=== PATIENT | female | born 1960 | race African-American/Black ===

== ENCOUNTER 2017-01-02 10:19 | Emergency (ER) | payer MEDICAID ==
--- NOTE | 2017-01-02 10:36 | ER Document Report ---
ED Medical Screen (RME) - General Chief Complaint: Cough Stated Complaint: COUGH Mode of Arrival: Ambulatory Information source: Patient Notes: 56 y/o F presents to ED c/o productive cough over the last 3 days. Reports hx of COPD and lung CA in remission. Denies fever or chest pain. I have greeted and performed a rapid initial assessment of this patient. A comprehensive ED assessment and evaluation of the patient, analysis of test results and completion of the medical decision making process will be conducted by additional ED providers. TRAVEL OUTSIDE OF THE [place] IN LAST 30 DAYS: No - Related Data Allergies/Adverse Reactions: honey [Honey] Allergy (Intermediate, Verified 01/02/17 10:33) Hives, tongue swelling Honey Bee Venom Protein [From Honey Bee Treatment] Allergy (Intermediate, Verified 01/02/17 10:33) Hives, tongue swelling Penicillins Allergy (Intermediate, Verified 01/02/17 10:33) hives, tongue swelling chocolate Allergy (Intermediate, Uncoded 01/02/17 10:33) Hives, tongue swelling POWDER GLOVES Allergy (Intermediate, Uncoded 01/02/17 10:33) RASH tomatoes Allergy (Intermediate, Uncoded 01/02/17 10:33) Hives, tongue swelling Past Medical History - Past Medical History Cardiac Medical History: Reports: Hx Hypertension Denies: Hx Coronary Artery Disease, Hx Heart Attack Pulmonary Medical History: Reports: Hx Asthma, Hx Bronchitis Denies: Hx COPD, Hx Pneumonia Neurological Medical History: Denies: Hx Cerebrovascular Accident, Hx Seizures Malignancy Medical History: Reports: Hx Lung Cancer Musculoskeltal Medical History: Denies Hx Arthritis Skin Medical History: Reports Hx Cellulitis, Reports Hx MRSA Traumatic Medical History: Reports: Hx Fractures Infectious Medical History: Reports: Hx MRSA Past Surgical History: Reports: Hx Hysterectomy - Immunizations Immunizations up to date: Yes Hx Diphtheria, Pertussis, Tetanus Vaccination: Yes Physical Exam - Vital signs Vitals: Temp Pulse Resp BP Pulse Ox 98.0 F 73 20 134/77 H 97 01/02/17 10:29 01/02/17 10:29 01/02/17 10:29 01/02/17 10:29 01/02/17 10:29 - General General appearance: Appears well, Alert In distress: None - Respiratory Respiratory status: No respiratory distress Breath sounds: Normal, Productive cough Course - Vital Signs Vital signs: Temp Pulse Resp BP Pulse Ox 98.0 F 73 20 134/77 H 97 01/02/17 10:29 01/02/17 10:29 01/02/17 10:29 01/02/17 10:29 01/02/17 10:29
[2017-01-02] MEDS ORDERED: IPRATROPIUM/ALBUTEROL 0.5-2.5 MG/3 ML AMPUL NEB ONE (11:52)
[2017-01-02] MEDS ORDERED: PREDNISONE 20 MG TABLET PO ONE (11:52)
[2017-01-02] MEDS ORDERED: AZITHROMYCIN 250 MG TABLET PO ONE (11:54)
--- NOTE | 2017-01-02 11:55 | ER Document Report ---
ED Respiratory Problem - General Chief Complaint: Cough Stated Complaint: COUGH Mode of Arrival: Ambulatory Information source: Patient Notes: Patient reports three-day history productive cough. Patient denies any fever. Patient does report increased sputum. Patient does have a history of COPD as well as lung cancer. Patient states she has been in remission from her lung cancer for the past 3 months. TRAVEL OUTSIDE OF THE [place] IN LAST 30 DAYS: No - HPI Patient complains to provider of: COPD, Cough. No: Chest pain, Short of breath Onset: Other - 3 days Pain Level: 0 Context: Hx COPD, Smoker Cough: Productive Sputum amount: Moderate Associated symptoms: Cough, Toothache. denies: Bloody cough, Chest pain/ discomfort, Congestion, Fever Similar symptoms previously: Yes Recently seen / treated by doctor: No - Related Data Allergies/Adverse Reactions: honey [Honey] Allergy (Intermediate, Verified 01/02/17 10:33) Hives, tongue swelling Honey Bee Venom Protein [From Honey Bee Treatment] Allergy (Intermediate, Verified 01/02/17 10:33) Hives, tongue swelling Penicillins Allergy (Intermediate, Verified 01/02/17 10:33) hives, tongue swelling chocolate Allergy (Intermediate, Uncoded 01/02/17 10:33) Hives, tongue swelling POWDER GLOVES Allergy (Intermediate, Uncoded 01/02/17 10:33) RASH tomatoes Allergy (Intermediate, Uncoded 01/02/17 10:33) Hives, tongue swelling Past Medical History - General Information source: Patient - Social History Smoking Status: Current Every Day Smoker Chew tobacco use (# tins/day): No Frequency of alcohol use: None Drug Abuse: None Occupation: none Family History: Reviewed & Not Pertinent Patient has suicidal ideation: No Patient has homicidal ideation: No - Past Medical History Cardiac Medical History: Reports: Hx Hypertension Denies: Hx Coronary Artery Disease, Hx Heart Attack Pulmonary Medical History: Reports: Hx Asthma, Hx Bronchitis, Hx COPD Denies: Hx Pneumonia Neurological Medical History: Denies: Hx Cerebrovascular Accident, Hx Seizures Renal/ Medical History: Denies: Hx Peritoneal Dialysis Malignancy Medical History: Reports: Hx Lung Cancer Musculoskeltal Medical History: Denies Hx Arthritis Skin Medical History: Reports Hx Cellulitis, Reports Hx MRSA Traumatic Medical History: Reports: Hx Fractures Infectious Medical History: Reports: Hx MRSA Past Surgical History: Reports: Hx Hysterectomy - Immunizations Immunizations up to date: Yes Hx Diphtheria, Pertussis, Tetanus Vaccination: Yes Review of Systems - Review of Systems Constitutional: No symptoms reported. denies: Fever EENT: No symptoms reported Cardiovascular: No symptoms reported. denies: Chest pain, Dizziness, Lightheaded Respiratory: Cough, Wheezing. denies: Hemoptysis, Short of breath Gastrointestinal: No symptoms reported. denies: Nausea, Vomiting Genitourinary: No symptoms reported Female Genitourinary: No symptoms reported Musculoskeletal: No symptoms reported. denies: Back pain Skin: No symptoms reported Hematologic/Lymphatic: No symptoms reported Neurological/Psychological: No symptoms reported Physical Exam - Vital signs Vitals: Temp Pulse Resp BP Pulse Ox 98.0 F 73 20 134/77 H 97 01/02/17 10:29 01/02/17 10:29 01/02/17 10:29 01/02/17 10:29 01/02/17 10:29 - General General appearance: Appears well, Alert In distress: None - HEENT Head: Normocephalic Eyes: Normal Conjunctiva: Normal Nasal: Normal Mouth/Lips: Normal Mucous membranes: Normal Pharynx: Normal. No: Erythema, Exudate, Peritonsillar abscess, Tonsillar hypertrophy Neck: Normal, Supple. No: Lymphadenopathy - Respiratory Respiratory status: No respiratory distress Chest status: Nontender Breath sounds: Nonproductive cough, Wheezing Chest palpation: Normal - Cardiovascular Rhythm: Regular Heart sounds: S1 appreciated, S2 appreciated Murmur: No - Back Back: Normal, Nontender. No: CVA tenderness - Extremities General upper extremity: Normal inspection, Normal strength General lower extremity: Normal inspection, Normal strength - Neurological Neuro grossly intact: Yes Cognition: Normal [place] Coma Scale Eye Opening: Spontaneous [place] Coma Scale Verbal: Oriented [place] Coma Scale Motor: Obeys Commands [place] Coma Scale Total: 15 - Psychological Associated symptoms: Normal affect, Normal mood - Skin Skin Temperature: Warm Skin Moisture: Dry Skin Color: Normal Course - Re-evaluation Re-evalutation: 01/02/17 12:37 Wheezing resolved after nebulizer treatment. Patient with decreased cough frequency. Discussed with patient and worsening signs or symptoms that she should return immediately for. Patient verbalized understanding of instructions and agrees with plan of care. - Vital Signs Vital signs: Temp Pulse Resp BP Pulse Ox 97.6 F 76 16 123/72 97 01/02/17 12:45 01/02/17 12:45 01/02/17 12:45 01/02/17 12:45 01/02/17 12:45 - Diagnostic Test Radiology reviewed: Reports reviewed Discharge - Discharge Clinical Impression: COPD exacerbation Condition: Stable Disposition: HOME, SELF-CARE Instructions: Chronic Obstructive Lung Disease ([facility]), Steroid Medication, Azithromycin ([facility]) Additional Instructions: Return immediately for any new or worsening symptoms Followup with your primary care provider, call tomorrow to make a followup appointment Use your inhaler and nebulizers at home as previously prescribed Prescriptions: Azithromycin [Zithromax 250 mg Tablet] 250 mg PO DAILY 4 Days Prednisone [Deltasone 20 mg Tablet] 3 tab PO DAILY 4 Days Referrals: JALIL GERMAIN MD [Primary Care Provider] - Follow up tomorrow
[2017-01-02 12:48] VITALS: BP 123/72
== END 2017-01-02 12:48 | disposition home or self-care (01) ==
LOC: ER 10:19
DX: J44.1 Chronic obstructive pulmonary disease with (acute) exacerbation (principal); J45.909 Unspecified asthma, uncomplicated; R05 Cough; K08.89 Other specified disorders of teeth and supporting structures; I10 Essential (primary) hypertension; F17.200 Nicotine dependence, unspecified, uncomplicated; Z85.118 Personal history of other malignant neoplasm of bronchus and lung; Z88.0 Allergy status to penicillin; Z91.018 Allergy to other foods; Z91.048 Other nonmedicinal substance allergy status; Z86.14 Personal history of Methicillin resistant Staphylococcus aureus infection
CPT/HCPCS: 94640; 99283; 71020; Q0144; J7512; J7620

== ENCOUNTER → 2017-01-02 | Outpatient (CLI) | payer MEDICAID, OTHER | LOC: WI 09:57 | PROVIDERS: ATTEND Physician Assistant | DX: Z12.31 Encounter for screening mammogram for malignant neoplasm of breast (principal) | CPT/HCPCS: 77067; G0202 ==

== ENCOUNTER 2017-02-05 11:17 | Emergency (ER) | payer MEDICAID ==
--- NOTE | 2017-02-05 11:32 | ER Document Report ---
ED Medical Screen (RME) - General TRAVEL OUTSIDE OF THE [place] IN LAST 30 DAYS: No <CINDA VILA - Last Filed: 02/05/17 11:29> <EDUARDO TERRY - Last Filed: 02/07/17 05:35> - General Stated Complaint: LEFT FOOT PAIN Notes: 56 yo female c/o swelling and pain to left foot x 1 week. no trauma. no chest pain or shortness of breath generalized edema and pain to left dorsal foot. pt is in remission for lung cancer (CINDA VILA) - Related Data Allergies/Adverse Reactions: honey [Honey] Allergy (Intermediate, Verified 02/05/17 11:29) Hives, tongue swelling Honey Bee Venom Protein [From Honey Bee Treatment] Allergy (Intermediate, Verified 02/05/17 11:29) Hives, tongue swelling Penicillins Allergy (Intermediate, Verified 02/05/17 11:29) hives, tongue swelling chocolate Allergy (Intermediate, Uncoded 02/05/17 11:29) Hives, tongue swelling POWDER GLOVES Allergy (Intermediate, Uncoded 02/05/17 11:29) RASH tomatoes Allergy (Intermediate, Uncoded 02/05/17 11:29) Hives, tongue swelling Past Medical History - Past Medical History Cardiac Medical History: Reports: Hx Hypertension Denies: Hx Coronary Artery Disease, Hx Heart Attack Pulmonary Medical History: Reports: Hx Asthma, Hx Bronchitis, Hx COPD Denies: Hx Pneumonia Neurological Medical History: Denies: Hx Cerebrovascular Accident, Hx Seizures Renal/ Medical History: Denies: Hx Peritoneal Dialysis Malignancy Medical History: Reports: Hx Lung Cancer Musculoskeltal Medical History: Denies Hx Arthritis Skin Medical History: Reports Hx Cellulitis, Reports Hx MRSA Traumatic Medical History: Reports: Hx Fractures Infectious Medical History: Reports: Hx MRSA Past Surgical History: Reports: Hx Hysterectomy - Immunizations Immunizations up to date: Yes Hx Diphtheria, Pertussis, Tetanus Vaccination: Yes <CINDA VILA - Last Filed: 02/05/17 11:29> Course - Laboratory Result Diagrams: 02/05/17 11:40 02/05/17 11:40 <EDUARDO TERRY - Last Filed: 02/07/17 05:35> - Vital Signs Vital signs: Temp Pulse Resp BP Pulse Ox 98.4 F 76 18 140/68 H 98 02/05/17 18:08 02/05/17 18:08 02/05/17 18:08 02/05/17 18:08 02/05/17 18:08 - Laboratory Laboratory results interpreted by me: 02/05/17 11:40 RDW 16.2 H Doctor's Discharge <CINDA VILA - Last Filed: 02/05/17 11:29> <EDUARDO TERRY - Last Filed: 02/07/17 05:35> - Discharge Clinical Impression: Foot swelling, Foot pain, left Condition: Stable Disposition: HOME, SELF-CARE Additional Instructions: There is no clear explanation for the pain and swelling of your foot. Gout is a possibility. You should take medications as prescribed--start the Prednisone tomorrow. Elevate her foot as much as possible. Limit walking and weight bearing as much as possible. Follow-up with your doctor in a few days if not improving. Prescriptions: Hydrocodone/Acetaminophen [Hydrocodon-Acetaminophen 5-325] 1 each PO Q4 PRN #15 tablet PRN Reason: Prednisone [Deltasone 10 mg Tablet] 10 mg PO ASDIR PRN #21 tablet PRN Reason: Referrals: JALIL GERMAIN MD [Primary Care Provider] - Follow up as needed
[2017-02-05 12:01] LABS: ABSOLUTE BASOPHILS # (AUTO) 0.1 10^3/uL (0.0-0.2); ABSOLUTE EOSINOPHILS # (AUTO) 0.1 10^3/uL (0.0-0.6); ABSOLUTE LYMPHOCYTES (AUTO) 2.2 10^3/uL (0.5-4.7); ABSOLUTE MONOCYTES (AUTO) 0.7 10^3/uL (0.1-1.4); ABSOLUTE NEUT (AUTO) 4.1 10^3/uL (1.7-8.2); EOSINOPHILS % (AUTO) 0.7 % (0-6); HEMATOCRIT 37.1 % (36.0-47.0); HGB HCT DIFFERENCE 1.9; LYMPHOCYTES % (AUTO) 30.3 % (13-45); MEAN CORPUSCULAR HEMOGLOBIN 32.4 pg (27.0-33.4); MEAN CORPUSCULAR HGB CONC 34.9 g/dL (32.0-36.0); MEAN CORPUSCULAR VOLUME 93 fl (80-97); MONOCYTES % (AUTO) 10.3 % (3-13); RED CELL DISTRIBUTION WIDTH 16.2 % (11.5-14.0); SEGMENTED NEUTROPHILS % (AUTO) 57.7 % (42-78); WHITE BLOOD COUNT 7.1 10^3/uL (4.0-10.5)
[2017-02-05 12:24] LABS: ALANINE AMINOTRANSFERASE 24 U/L (9-52); ALBUMIN 4.2 g/dL (3.5-5.0); ALKALINE PHOSPHATASE 76 U/L (38-126); ANION GAP 13 (5-19); ASPARTATE AMINO TRANSFERASE 19 U/L (14-36); BILIRUBIN,DIRECT 0.3 mg/dL (0.0-0.4); BILIRUBIN,TOTAL 0.6 mg/dL (0.2-1.3); BLOOD UREA NITROGEN 14 mg/dL (7-20); CARBON DIOXIDE 24 mmol/L (22-30); CHLORIDE 107 mmol/L (98-107); CREATININE RESULT 0.64 mg/dL (0.52-1.25); GLUCOSE 81 mg/dL (75-110); POTASSIUM 3.8 mmol/L (3.6-5.0); SODIUM 144.2 mmol/L (137-145); TOTAL PROTEIN 7.2 g/dL (6.3-8.2); URIC ACID 6.4 mg/dL (2.5-7.5)
--- NOTE | 2017-02-05 14:39 | ER Document Report ---
ED Extremity Problem, Lower - General Mode of Arrival: Ambulatory Information source: Patient TRAVEL OUTSIDE OF THE [place] IN LAST 30 DAYS: No - HPI Patient complains to provider of: Swelling Location: Foot - Left Occurred: Last week Onset/Duration: Persistent Quality of pain: Sharp Recent injury: No Exacerbated by: Walking <SUSIE NUGENT - Last Filed: 02/05/17 14:57> <MARY SETH - Last Filed: 02/05/17 17:21> - General Chief Complaint: Swelling of Lower Extremity Stated Complaint: LEFT FOOT PAIN Notes: Patient is a 56-year-old female presenting to the emergency department concerned of left foot swelling with pain onset approximately 1 week ago. Patient states that the swelling has improved a little bit since yesterday, and she does not remember injuring the foot in any way. Patient states that she has had gout in the past and this does not feel like gout. Patient states that it hurts worse to stand and walk. The pain is mostly located on the top of the foot, but no pain to the ankle. Patient is in remission from lung cancer. Patient's primary care physician is Dr. Soto (SUSIE NUGENT) - Related Data Allergies/Adverse Reactions: honey [Honey] Allergy (Intermediate, Verified 02/05/17 11:29) Hives, tongue swelling Honey Bee Venom Protein [From Honey Bee Treatment] Allergy (Intermediate, Verified 02/05/17 11:29) Hives, tongue swelling Penicillins Allergy (Intermediate, Verified 02/05/17 11:29) hives, tongue swelling chocolate Allergy (Intermediate, Uncoded 02/05/17 11:29) Hives, tongue swelling POWDER GLOVES Allergy (Intermediate, Uncoded 02/05/17 11:29) RASH tomatoes Allergy (Intermediate, Uncoded 02/05/17 11:29) Hives, tongue swelling Past Medical History - General Information source: Patient - Social History Smoking Status: Current Every Day Smoker Chew tobacco use (# tins/day): No Frequency of alcohol use: Occasional Drug Abuse: None Family History: Reviewed & Not Pertinent Patient has suicidal ideation: No Patient has homicidal ideation: No - Past Medical History Cardiac Medical History: Reports: Hx Hypertension Denies: Hx Coronary Artery Disease, Hx Heart Attack Pulmonary Medical History: Reports: Hx Asthma, Hx Bronchitis, Hx COPD Denies: Hx Pneumonia Neurological Medical History: Denies: Hx Cerebrovascular Accident, Hx Seizures Renal/ Medical History: Denies: Hx Peritoneal Dialysis Malignancy Medical History: Reports: Hx Lung Cancer Musculoskeltal Medical History: Denies Hx Arthritis, Reports Hx Gout Skin Medical History: Reports Hx Cellulitis, Reports Hx MRSA Traumatic Medical History: Reports: Hx Fractures Infectious Medical History: Reports: Hx MRSA Past Surgical History: Reports: Hx Hysterectomy - Immunizations Immunizations up to date: Yes Hx Diphtheria, Pertussis, Tetanus Vaccination: Yes <SUSIE NUGENT - Last Filed: 02/05/17 14:57> Review of Systems - Review of Systems Constitutional: No symptoms reported EENT: No symptoms reported Cardiovascular: No symptoms reported Respiratory: No symptoms reported Gastrointestinal: No symptoms reported Genitourinary: No symptoms reported Female Genitourinary: No symptoms reported Musculoskeletal: See HPI, Other - Left foot swelling and tenderness Skin: No symptoms reported Hematologic/Lymphatic: No symptoms reported Neurological/Psychological: No symptoms reported -: Yes All other systems reviewed and negative <SUSIE NUGENT - Last Filed: 02/05/17 14:57> Physical Exam - Vital signs Interpretation: Normal - General General appearance: Appears well, Alert - HEENT Head: Normocephalic, Atraumatic Eyes: Normal Pupils: PERRL - Respiratory Respiratory status: No respiratory distress Chest status: Nontender Breath sounds: Wheezing - Bilaterally, chronic Chest palpation: Normal - Cardiovascular Rhythm: Regular Murmur: No - Abdominal Inspection: Normal Tenderness: Nontender - Back Back: Normal, Nontender - Extremities General upper extremity: Normal inspection, Nontender Foot: Edema - Left dust box tender to palpate around the tarsal metatarsal joints. Mild pain to the base of the fifth metatarsal. Left foot is swollen dorsally, no swelling to the toes. No redness or warmth noted on foot. - Neurological Neuro grossly intact: Yes Cognition: Normal [place] Coma Scale Eye Opening: Spontaneous [place] Coma Scale Verbal: Oriented [place] Coma Scale Motor: Obeys Commands [place] Coma Scale Total: 15 Speech: Normal - Psychological Associated symptoms: Normal affect, Normal mood - Skin Skin Temperature: Warm Skin Moisture: Dry Skin Color: Normal <SUSIE NUGENT - Last Filed: 02/05/17 14:57> Course - Laboratory Result Diagrams: 02/05/17 11:40 02/05/17 11:40 <SUSIE NUGENT - Last Filed: 02/05/17 14:57> - Laboratory Result Diagrams: 02/05/17 11:40 02/05/17 11:40 <MARY SETH - Last Filed: 02/05/17 17:21> - Vital Signs Vital signs: Temp Pulse Resp BP Pulse Ox 98.2 F 67 16 133/65 H 99 02/05/17 11:21 02/05/17 11:21 02/05/17 11:21 02/05/17 11:21 02/05/17 11:21 - Laboratory Laboratory results interpreted by me: 02/05/17 11:40 RDW 16.2 H Discharge <SUSIE NUGENT - Last Filed: 02/05/17 14:57> <MARY SETH - Last Filed: 02/05/17 17:21> - Discharge Clinical Impression: Foot swelling, Foot pain, left Condition: Stable Disposition: HOME, SELF-CARE Additional Instructions: There is no clear explanation for the pain and swelling of your foot. Gout is a possibility. You should take medications as prescribed--start the Prednisone tomorrow. Elevate her foot as much as possible. Limit walking and weight bearing as much as possible. Follow-up with your doctor in a few days if not improving. Prescriptions: Hydrocodone/Acetaminophen [Hydrocodon-Acetaminophen 5-325] 1 each PO Q4 PRN #15 tablet PRN Reason: Prednisone [Deltasone 10 mg Tablet] 10 mg PO ASDIR PRN #21 tablet PRN Reason: Referrals: JALIL SOTO MD [Primary Care Provider] - Follow up as needed Scribe Attestation: 02/05/17 17:21 I personally performed the services described in the documentation, reviewed and edited the documentation which was dictated to the scribe in my presence, and it accurately records my words and actions. (MARY SETH) Scribe Documentation - Scribe Written by Scribe:: Susie Nugent 02/05/2017 1439 acting as scribe for :: Thanh <SUSIE NUGENT - Last Filed: 02/05/17 14:57>
[2017-02-05] MEDS ORDERED: PREDNISONE 20 MG TABLET PO ONE (17:17)
[2017-02-05 18:10] VITALS: BP 140/68
== END 2017-02-05 18:11 | disposition home or self-care (01) ==
LOC: ER 11:17
DX: M79.89 Other specified soft tissue disorders (principal); M79.672 Pain in left foot; I10 Essential (primary) hypertension; J44.9 Chronic obstructive pulmonary disease, unspecified; F17.200 Nicotine dependence, unspecified, uncomplicated; Z91.030 Bee allergy status; Z88.0 Allergy status to penicillin; Z91.018 Allergy to other foods; Z91.048 Other nonmedicinal substance allergy status; Z86.14 Personal history of Methicillin resistant Staphylococcus aureus infection; Z85.118 Personal history of other malignant neoplasm of bronchus and lung; Z87.39 Personal history of other diseases of the musculoskeletal system and connective tissue
CPT/HCPCS: 99283; 36415; 84550; 85025; 80053; 85379; 73630; J7512

== ENCOUNTER 2017-02-20 10:10 | Emergency (ER) | payer MEDICAID, MEDICARE ==
[2017-02-20] MEDS ORDERED: BUTALB/ACETAMINOPHEN/CAFFEINE 1 TAB EACH PO ONE (10:53)
--- NOTE | 2017-02-20 10:53 | ER Document Report ---
ED Medical Screen (RME) - General Chief Complaint: Bloody Stools Stated Complaint: HEADACHE Notes: The patient is a 56-year-old female who presents from her primary care physician 's office (Dr. Soto) after she was having rectal bleeding for the past day and began to feel lightheaded. She said that there is bright red blood in her stools. She was seeing Dr. Soto this morning for follow-up for gout in her left foot. She also has a headache for the past 4 days and took Tylenol and Motrin without much relief. Headache is similar nature to prior headaches and they usually resolve without any intervention. Denies blurry vision, numbness, tingling, fevers, neck stiffness, chest pain, shortness of breath, abdominal pain, nausea or vomiting. I have greeted and performed a rapid initial assessment of this patient. A comprehensive ED assessment and evaluation of the patient, analysis of test results and completion of the medical decision making process will be conducted by additional ED providers. TRAVEL OUTSIDE OF THE [place] IN LAST 30 DAYS: No - Related Data Allergies/Adverse Reactions: honey [Honey] Allergy (Intermediate, Verified 02/05/17 11:29) Hives, tongue swelling Honey Bee Venom Protein [From Honey Bee Treatment] Allergy (Intermediate, Verified 02/05/17 11:29) Hives, tongue swelling Penicillins Allergy (Intermediate, Verified 02/05/17 11:29) hives, tongue swelling chocolate Allergy (Intermediate, Uncoded 02/05/17 11:29) Hives, tongue swelling POWDER GLOVES Allergy (Intermediate, Uncoded 02/05/17 11:29) RASH tomatoes Allergy (Intermediate, Uncoded 02/05/17 11:29) Hives, tongue swelling Past Medical History - Past Medical History Cardiac Medical History: Reports: Hx Hypertension Denies: Hx Coronary Artery Disease, Hx Heart Attack Pulmonary Medical History: Reports: Hx Asthma, Hx Bronchitis, Hx COPD Denies: Hx Pneumonia Neurological Medical History: Denies: Hx Cerebrovascular Accident, Hx Seizures Renal/ Medical History: Denies: Hx Peritoneal Dialysis Malignancy Medical History: Reports: Hx Lung Cancer Musculoskeltal Medical History: Denies Hx Arthritis, Reports Hx Gout Skin Medical History: Reports Hx Cellulitis, Reports Hx MRSA Traumatic Medical History: Reports: Hx Fractures Infectious Medical History: Reports: Hx MRSA Past Surgical History: Reports: Hx Hysterectomy - Immunizations Immunizations up to date: Yes Hx Diphtheria, Pertussis, Tetanus Vaccination: Yes Physical Exam - Vital signs Vitals: Temp Pulse Resp BP Pulse Ox 97.8 F 60 14 147/76 H 100 02/20/17 10:18 02/20/17 10:18 02/20/17 10:18 02/20/17 10:18 02/20/17 10:18 Course - Vital Signs Vital signs: Temp Pulse Resp BP Pulse Ox 97.8 F 60 14 147/76 H 100 02/20/17 10:18 02/20/17 10:18 02/20/17 10:18 02/20/17 10:18 02/20/17 10:18
[2017-02-20 11:06] LABS: ABSOLUTE BASOPHILS # (AUTO) 0.1 10^3/uL (0.0-0.2); ABSOLUTE EOSINOPHILS # (AUTO) 0.1 10^3/uL (0.0-0.6); ABSOLUTE LYMPHOCYTES (AUTO) 1.9 10^3/uL (0.5-4.7); ABSOLUTE MONOCYTES (AUTO) 0.6 10^3/uL (0.1-1.4); ABSOLUTE NEUT (AUTO) 5.1 10^3/uL (1.7-8.2); BASOPHILS % (AUTO) 1.3 % (0-2); EOSINOPHILS % (AUTO) 1.3 % (0-6); HEMATOCRIT 37.1 % (36.0-47.0); HEMOGLOBIN 12.7 g/dL (12.0-15.5); LYMPHOCYTES % (AUTO) 24.2 % (13-45); MEAN CORPUSCULAR HEMOGLOBIN 31.7 pg (27.0-33.4); MEAN CORPUSCULAR HGB CONC 34.3 g/dL (32.0-36.0); MEAN CORPUSCULAR VOLUME 92 fl (80-97); MONOCYTES % (AUTO) 8.2 % (3-13); RED BLOOD COUNT 4.01 10^6/uL (3.72-5.28); RED CELL DISTRIBUTION WIDTH 16.7 % (11.5-14.0); WHITE BLOOD COUNT 7.8 10^3/uL (4.0-10.5)
[2017-02-20 11:14] LABS: PROTHROMBIN TIME 12.2 SEC (11.4-15.4)
[2017-02-20 11:15] LABS: PARTIAL THROMBOPLASTIN TIME 31.1 SEC (23.5-35.8)
[2017-02-20 11:23] LABS: ANION GAP 14 (5-19); BLOOD UREA NITROGEN 12 mg/dL (7-20); CARBON DIOXIDE 24 mmol/L (22-30); CHLORIDE 107 mmol/L (98-107); CREATININE RESULT 0.63 mg/dL (0.52-1.25); GLUCOSE 101 mg/dL (75-110); POTASSIUM 4.2 mmol/L (3.6-5.0); SODIUM 144.8 mmol/L (137-145)
--- NOTE | 2017-02-20 12:04 | ER Document Report ---
ED General - General Chief Complaint: Bloody Stools Stated Complaint: HEADACHE Time seen by provider: 11:40 Mode of Arrival: Ambulatory Information source: Patient Notes: 56-year-old female complains about 4 day history of diffuse headache gradual in onset and similar in character to which she has had in the past most recently she thinks about 2 years ago. Patient reports seeing a neurologist for this in the past but does not recall a specific diagnosis. She reports occasional dizziness and blurry vision with it but denies any focal numbness weakness to any extremity. She denies photophobia or difficulty with speech or swallowing. She reports a history of lung cancer treated with chemotherapy and radiation with Dr. Austen FERNANDO completed about 6 months ago. She also states to this examiner she noted some blood in her stool this morning says she was seen at Dr. Goldy Germain's office or bloody stools confirmed that she was referred to the emergency department for both of the above problems. She denies hematemesis or melena. She denies vaginal bleeding or discharge. She denies chest pain, abdominal pain, or dysuria. She reports chronic back pain not worse than normal. For for appetite since the headache began about 4 days ago. Physical Exam: General: Alert, appears well. HEENT: Normocephalic. Atraumatic. PERRLA. Extraocular movements intact. Tympanic members are canals clear Oropharynx clear. Neck: Supple. Non-tender. No JVD no adenopathy no nuchal rigidity no carotid bruits Respiratory: No respiratory distress. Clear and equal breath sounds bilaterally. Cardiovascular: Regular rate and rhythm. PMI not displaced Abdominal: Normal Inspection. Soft, non-tender. No distension. Normal Bowel Sounds. Rectal normal tone and brown stool no gross blood Back: Non-tender. No deformity or step off. Extremities: All 4 extremities warm with 2+ pulses of cyanosis no edema no Homans sign good range of motion without discomfort Neurological: Speech clear mentation normal cranial nerves III through XII intact. Cerebellar function intact by finger-nose test bilaterally light touch sensation intact over extremities doll wigs hackler strength 5 out of 5 equal both upper tremors motor function 5 out of 5 equal both lower extremities Psychological: Normal affect. Normal Mood. Skin: Warm. Dry. Normal color. TRAVEL OUTSIDE OF THE [place] IN LAST 30 DAYS: No - Related Data Allergies/Adverse Reactions: honey [Honey] Allergy (Intermediate, Verified 02/05/17 11:29) Hives, tongue swelling Honey Bee Venom Protein [From Honey Bee Treatment] Allergy (Intermediate, Verified 02/05/17 11:29) Hives, tongue swelling Penicillins Allergy (Intermediate, Verified 02/05/17 11:29) hives, tongue swelling chocolate Allergy (Intermediate, Uncoded 02/05/17 11:29) Hives, tongue swelling POWDER GLOVES Allergy (Intermediate, Uncoded 02/05/17 11:29) RASH tomatoes Allergy (Intermediate, Uncoded 02/05/17 11:29) Hives, tongue swelling Past Medical History - Social History Smoking Status: Current Every Day Smoker Chew tobacco use (# tins/day): No Frequency of alcohol use: Occasional Drug Abuse: None Family History: DM - Past Medical History Cardiac Medical History: Reports: Hx Hypertension Denies: Hx Coronary Artery Disease, Hx Heart Attack Pulmonary Medical History: Reports: Hx Asthma, Hx Bronchitis, Hx COPD Denies: Hx Pneumonia Neurological Medical History: Reports: Other - History of unspecified headaches. Denies: Hx Cerebrovascular Accident, Hx Seizures Renal/ Medical History: Denies: Hx Peritoneal Dialysis Malignancy Medical History: Reports: Hx Lung Cancer Musculoskeltal Medical History: Denies Hx Arthritis, Reports Hx Gout Skin Medical History: Reports Hx Cellulitis, Reports Hx MRSA Traumatic Medical History: Reports: Hx Fractures Infectious Medical History: Reports: Hx MRSA Past Surgical History: Reports: Hx Hysterectomy - Immunizations Immunizations up to date: Yes Hx Diphtheria, Pertussis, Tetanus Vaccination: Yes Review of Systems - Review of Systems Constitutional: denies: Chills, Fever EENT: denies: Ear pain, Throat pain, Mouth pain Cardiovascular: denies: Chest pain, Dyspnea Respiratory: denies: Cough, Short of breath, Wheezing Gastrointestinal: denies: Abdominal pain, Diarrhea, Vomiting Genitourinary: denies: Burning, Dysuria Female Genitourinary: Post menopausal Musculoskeletal: denies: Back pain, Leg swelling, Ankle swelling Skin: denies: Rash Hematologic/Lymphatic: denies: Swollen glands Neurological/Psychological: denies: Weakness, Numbness Physical Exam - Vital signs Vitals: Temp Pulse Resp BP Pulse Ox 97.8 F 60 14 147/76 H 100 02/20/17 10:18 02/20/17 10:18 02/20/17 10:18 02/20/17 10:18 02/20/17 10:18 Course - Re-evaluation Re-evalutation: 02/20/17 13:42 Patient reports headache is feeling better. She is able any without difficulty. Stool is heme-negative here in her H&H is normal so believe whatever GI bleeding she had was self-limited. Records are reviewed and she was noted to have significant sigmoid diverticulosis her prior Tyler appears to have much less serious bleeding this time. Patient is eager for discharge and agrees to follow with her physician Dr. Germain as an outpatient next week find no indication for admission diagnoses #1 headache improved #2 rectal bleeding resolved 02/20/17 13:43 - Vital Signs Vital signs: Temp Pulse Resp BP Pulse Ox 97.8 F 60 14 147/76 H 100 02/20/17 10:18 02/20/17 10:18 02/20/17 10:18 02/20/17 10:18 02/20/17 10:18 - Laboratory Result Diagrams: 02/20/17 10:45 02/20/17 10:45 Laboratory results interpreted by me: 02/20/17 10:45 RDW 16.7 H - Diagnostic Test Radiology reviewed: Image reviewed, Reports reviewed Discharge - Discharge Clinical Impression: Rectal bleeding Headache Qualifiers: Headache type: unspecified Headache chronicity pattern: acute headache Intractability: not intractable Qualified Code(s): R51 - Headache Condition: Stable Disposition: HOME, SELF-CARE Additional Instructions: Headache The physician does not feel that the headache you are experiencing has a serious underlying cause. Most headaches are due to emotional stress, with resultant muscle tension (tension headache). Occasionally, headaches are secondary to changes in the blood vessels of the scalp (vascular headache and migraine headache). Sometimes, a headache is the first symptom of another developing illness, such as a viral infection. You have no evidence of stroke, bleeding, meningitis, or other serious cause of your headache. The treatment of headaches varies with the severity and cause of the pain. Not all headaches need pain shots. In fact, there is evidence that using narcotics for headaches may make them worse in the long run. The physician will determine the therapy that's in your best interest. If you develop a fever, if the headache is different from any you've previously experienced, or if the headache progressively worsens, then call your physician at once or go to the emergency room. Referrals: ILA GERMAIN MD [Primary Care Provider] - Follow up in 1 week
[2017-02-20 14:10] VITALS: BP 165/76
== END 2017-02-20 14:10 | disposition home or self-care (01) ==
LOC: ER 10:10
DX: R51 Headache (principal); K62.5 Hemorrhage of anus and rectum; R42 Dizziness and giddiness; H53.8 Other visual disturbances; F17.200 Nicotine dependence, unspecified, uncomplicated; I10 Essential (primary) hypertension; Z88.0 Allergy status to penicillin; Z85.118 Personal history of other malignant neoplasm of bronchus and lung; Z86.14 Personal history of Methicillin resistant Staphylococcus aureus infection; Z90.710 Acquired absence of both cervix and uterus
CPT/HCPCS: 99284; 86900; 86901; 36415; 86850; 85025; 85610; 85730; 82272; 80048; 70450; J3490

== ENCOUNTER → 2017-03-21 | Outpatient (CLI) | payer MEDICAID | LOC: RAD 08:12 | PROVIDERS: ATTEND Internal Medicine | DX: C34.32 Malignant neoplasm of lower lobe, left bronchus or lung (principal) | CPT/HCPCS: 71260 ==

== ENCOUNTER 2017-03-27 20:20 | Emergency (ER) | payer MEDICAID, MEDICARE ==
[2017-03-27] MEDS ORDERED: DIPHENHYDRAMINE HCL 25 MG CAPSULE PO ONE (23:16)
[2017-03-27] MEDS ORDERED: FAMOTIDINE 20 MG TABLET PO ONE (23:16)
[2017-03-27] MEDS ORDERED: PREDNISONE 20 MG TABLET PO ONE (23:16)
[2017-03-27] MEDS ORDERED: DOXYCYCLINE HYCLATE 100 MG TABLET PO ONE (23:16)
--- NOTE | 2017-03-27 23:22 | ER Document Report ---
HPI - HPI Patient complains to provider of: Rash Pain Level: 0 Context: Patient is a 56-year-old female comes emergency department for chief complaint of a possible bite wound on her right shoulder that occurred today, she states the area has become irritated, red, itchy, and she became concerned about it. She states she was sitting on her couch when she felt a sharp bite-like sensation. She did not see any insect or other creature that could have caused this. Up-to-date on her tetanus within the past 6 months. She denies any other complaints. - REPRODUCTIVE Reproductive: DENIES: : - DERM Skin Color: Normal, [place] Past Medical History - General Information source: Patient - Social History Smoking Status: Never Smoker Frequency of alcohol use: None Drug Abuse: None Lives with: Family Family History: DM Patient has suicidal ideation: No Patient has homicidal ideation: No - Past Medical History Cardiac Medical History: Reports: Hx Hypertension Denies: Hx Coronary Artery Disease, Hx Heart Attack Pulmonary Medical History: Reports: Hx Asthma, Hx Bronchitis, Hx COPD Denies: Hx Pneumonia Neurological Medical History: Denies: Hx Cerebrovascular Accident, Hx Seizures Renal/ Medical History: Denies: Hx Peritoneal Dialysis Malignancy Medical History: Reports: Hx Lung Cancer Musculoskeltal Medical History: Denies Hx Arthritis, Reports Hx Gout Skin Medical History: Reports Hx Cellulitis, Reports Hx MRSA Traumatic Medical History: Reports: Hx Fractures Infectious Medical History: Reports: Hx MRSA Past Surgical History: Reports: Hx Hysterectomy - Immunizations Immunizations up to date: Yes Hx Diphtheria, Pertussis, Tetanus Vaccination: Yes Vertical Provider Document - CONSTITUTIONAL General Appearance: WD/WN, No Apparent Distress - INFECTION CONTROL TRAVEL OUTSIDE OF THE [place] IN LAST 30 DAYS: No - HEENT HEENT: Atraumatic, Normal ENT Exam, Normocephalic - NECK Neck: Normal Inspection - RESPIRATORY Respiratory: Breath Sounds Normal, No Respiratory Distress O2 Sat by Pulse Oximetry: 98 - CARDIOVASCULAR Cardiovascular: Regular Rate, Regular Rhythm - GI/ABDOMEN Gastrointestinal: Abdomen Soft, Abdomen Non-Tender - BACK Back: Normal Inspection - MUSCULOSKELETAL/EXTREMETIES Musculoskeletal/Extremeties: MAEW, FROM, Non-Tender - NEURO Level of Consciousness: Awake, Alert, Appropriate - DERM Integumentary: Rash - There are 2 small diop on patient's upper shoulder, one is bigger than the other, no bleeding, there is nearby localized mild erythema with small papules which appear mildly excoriated. No induration, no fluctuance , no swelling to the area, no significant heat to the area. Course - Re-evaluation Re-evalutation: There are 2 small diop on patient's upper shoulder, one is bigger than the other, there is nearby localized mild erythema with small papules which appear mildly excoriated. No induration, no fluctuance, no swelling to the area, no significant heat to the area. Based on patient's home setting, the large width of the 2 spots, I have low suspicion of spider or snakebite, nonspecific in appearance. Patient will be covered with doxycycline, given antihistamines for the localized reaction, no evidence of anaphylaxis, tetanus is already up-to- date, discussed monitoring, care, follow-up, recurrent return precautions in detail, patient states satisfaction in agreement. - Vital Signs Vital signs: Temp Pulse Resp BP Pulse Ox 98.8 F 78 16 171/76 H 98 03/27/17 20:34 03/27/17 20:34 03/27/17 20:34 03/27/17 20:34 03/27/17 20:34 Discharge - Discharge Clinical Impression: Rash Condition: Stable Disposition: HOME, SELF-CARE Additional Instructions: There is an area on the shoulder that appears to be some kind of bite, it is unclear at this time what the source is. There is surrounding irritation which appears to be histamine reaction. Take the prescribed medications as directed to completion, take the zyrtec and pepcid for 7 days. Follow-up with primary care. Return immediately for any concerning or worsening symptoms including spreading redness, pain to the area, fever, or any other concerning symptoms. Prescriptions: Cetirizine HCl [Zyrtec 10 mg Tablet] 1 tab PO DAILY #30 tablet Doxycycline Hyclate 100 mg PO BID #10 capsule Famotidine [Pepcid 20 mg Tablet] 20 mg PO BID #14 tablet Methylprednisolone [Medrol Dosepack (4 mg/Tab) 21 Tab/Dosepak] 4 mg PO ASDIR PRN #21 tab.ds.pk PRN Reason: Forms: Elevated Blood Pressure
[2017-03-27 23:39] VITALS: BP 169/74
== END 2017-03-27 23:39 | disposition home or self-care (01) ==
LOC: ER 20:20
DX: R21 Rash and other nonspecific skin eruption (principal); I10 Essential (primary) hypertension; J44.9 Chronic obstructive pulmonary disease, unspecified; Z85.118 Personal history of other malignant neoplasm of bronchus and lung; Z86.14 Personal history of Methicillin resistant Staphylococcus aureus infection
CPT/HCPCS: 99282

== ENCOUNTER → 2017-03-28 | Outpatient (CLI) | payer MEDICAID | LOC: RAD 16:58 | PROVIDERS: ATTEND Physician Assistant | DX: R29.810 Facial weakness (principal); R20.9 Unspecified disturbances of skin sensation; C34.32 Malignant neoplasm of lower lobe, left bronchus or lung | CPT/HCPCS: 70553; A9577 ==

== ENCOUNTER → 2017-04-20 | Outpatient (CLI) | payer MEDICARE, MEDICAID ==
--- NOTE | 2017-04-21 13:30 | RADIOLOGY REPORT (SQ) ---
EXAM DESCRIPTION: PET CT SKULL/THIGH COMPLETED DATE/TIME: 04/20/2017 8:37 pm REASON FOR STUDY: LUNG CANCER C34.32 MALIGNANT NEOPLASM OF LOWER LOBE, LEFT BRONCHUS OR CARMENCITA COMPARISON: PET-CT dated 09/15/2016. CT chest dated 03/21/2017 and 08/29/2016. RADIONUCLIDE AND DOSE: 12.0 mCi F18 FDG The route of agent administration: Intravenous FASTING BLOOD SUGAR: 88 mg/dl CONTRAST TYPE AND DOSE: No CT contrast given. TECHNIQUE: Blood glucose level was verified. Above dose of FDG was injected intravenously. 2-D seg mented attenuation correction images were obtained from the base of the skull to the midthighs. Nonc ontrast CT images were obtained for attenuation correction and fusion with emission images. CT image s were performed without oral or intravenous contrast and are not sensitive for parenchymal lesions. A series of overlapping emission PET images were obtained. Images reviewed and manipulated at [facility] work station by the radiologist. Images stored on PACS. LIMITATIONS: None. FINDINGS: HEAD AND NECK: No areas of abnormal metabolic activity in the soft tissues of the head and neck. CHEST: Pneumatocele in the left lower lobe with adjacent soft tissue mass measuring 1.1 x 1.4 cm. M cintia SUV 4.07. No other areas of abnormal metabolic activity in the chest. A few scattered areas of atelectasis and/or scarring. ABDOMEN AND PELVIS: No areas of abnormal metabolic activity in the abdomen or pelvis. Expected physi ologic activity is present in the genitourinary system and bowel. PROXIMAL LOWER EXTREMITIES: No areas of abnormal metabolic activity in the soft tissues of the lower extremities. BONES: No abnormal metabolic activity in the visualized skeleton. ADDITIONAL CT FINDINGS: Colonic diverticulosis. Calcified uterine fibroids. No other additional sig nificant findings on the noncontrast CT images. OTHER: No other significant findings. IMPRESSION: SOFT TISSUE MASS IN THE LEFT LOWER LOBE WITH INCREASED ACTIVITY, CONSISTENT WITH RECURRE NT DISEASE. NO OTHER PULMONARY LESIONS AND NO ADENOPATHY. NO EVIDENCE OF DISTANT METASTASIS. OTHER INCIDENTAL CT FINDINGS ABOVE. TECHNICAL DOCUMENTATION: JOB ID: [id number] [employer]- All Rights Reserved
== END ==
LOC: RAD 18:17
PROVIDERS: ATTEND Internal Medicine
DX: C34.32 Malignant neoplasm of lower lobe, left bronchus or lung (principal)
CPT/HCPCS: 78815; A9552

== ENCOUNTER → 2017-05-06 | Outpatient (CLI) | payer MEDICARE, MEDICAID ==
[~2017-05-06] MED LIST: ALBUTEROL SULFATE 0.083% NEB 2.5 MG/3 ML AMPUL NEB ONE
--- NOTE | 2017-05-06 18:11 | Pulmonary Function Test ---
Pulmonary Function Test Date of Procedure:: 05/06/17 INDICATION:: Dyspnea Referring Provider: Dr. Eliot Camacho [employer] Driver: Kate Turner NET MOBILE DEVELOPER, STUDENT AMBASSADOR - Report Spirometry: FVC 2.89 L 87% postbronchodilator therapy 2.71 L 88% FEV1 1.48 L 58% postbronchodilator therapy 1.84 L 85% FEV1/FVC % 54 postbronchodilator therapy 60 predicted 83 FEF 25-75% 0.4-15% postbronchodilator therapy 0.5 721% Lung Volume: Total lung capacity 4.04 L 82% Vital capacity 2.88 L 87% Inspiratory capacity 1.20 FRC N2 2.84 100% ERV 1.00 RV 1.34 L 74% RV/TLC % 33 predicted 37 Diffusion Capactity: DLCO 6.9 35% DLCO/VA 2.75 69% Impression: Moderate obstructive ventilatory defect with minimal response to bronchodilator therapy. This does not preclude a clinical trial of bronchodilator therapy.No hyperinflation and no air trapping. No restrictive ventilatory defect.Very severe decrease in diffusion capacity.
== END ==
LOC: RT 11:56
PROVIDERS: ATTEND Thoracic Surgery (Cardiothoracic Vascular Surgery)
DX: R91.8 Other nonspecific abnormal finding of lung field (principal)
CPT/HCPCS: 94729; 94727; 94060; A9270

== ENCOUNTER → 2017-08-07 | Outpatient (CLI) | payer MEDICARE, MEDICAID ==
--- NOTE | 2017-08-07 11:58 | RADIOLOGY REPORT (SQ) ---
EXAM DESCRIPTION: TMJ COMPLETED DATE/TIME: 08/07/2017 11:48 am REASON FOR STUDY: DISLOCATION OF TMJ S03.00XA DISLOCATION OF JAW, UNSPECIFIED SIDE, INITIAL ENCOU COMPARISON: None. NUMBER OF VIEWS: Five view. TECHNIQUE: Images of the right and left temporomandibular joints including open and closed-mouth vie ws. . LIMITATIONS: None. FINDINGS: No acute fracture or dislocation. Normal translation of the mandibular condyles in the ar ticular fossa on open-mouth views. No soft tissue abnormalities. IMPRESSION: NO ACUTE FRACTURE OR MALALIGNMENT. TECHNICAL DOCUMENTATION: JOB ID: [id number] [employer]- All Rights Reserved
== END ==
LOC: RAD 11:17
PROVIDERS: ATTEND Physician Assistant
DX: S03.00XA Dislocation of jaw, unspecified side, initial encounter (principal); X58.XXXA Exposure to other specified factors, initial encounter
CPT/HCPCS: 70330

== ENCOUNTER → 2017-12-05 | Outpatient (CLI) | payer MEDICARE, MEDICAID ==
--- NOTE | 2017-12-05 13:17 | RADIOLOGY REPORT (SQ) ---
EXAM DESCRIPTION: CHEST PA/LATERAL COMPLETED DATE/TIME: 12/05/2017 12:43 pm REASON FOR STUDY: MALIGNANT NEOPLASM OF LOWER LOBE, LEFT BRONCHUS OR LUNG COMPARISON: 01/02/2017. EXAM PARAMETERS: NUMBER OF VIEWS: two views TECHNIQUE: Digital Frontal and Lateral radiographic views of the chest acquired. RADIATION DOSE: NA LIMITATIONS: none FINDINGS: LUNGS AND PLEURA: No opacities, masses or pneumothorax. No pleural effusion. MEDIASTINUM AND HILAR STRUCTURES: No masses or contour abnormalities. HEART AND VASCULAR STRUCTURES: Heart normal size. No evidence for failure. BONES: No acute findings. HARDWARE: Radiopaque markers in the left lower lobe. OTHER: No other significant finding. IMPRESSION: NO SIGNIFICANT RADIOGRAPHIC FINDING IN THE CHEST. TECHNICAL DOCUMENTATION: JOB ID: [id number] [employer]- All Rights Reserved
--- NOTE | 2017-12-05 13:18 | RADIOLOGY REPORT (SQ) ---
EXAM DESCRIPTION: C SP 4 OR 5 VIEWS COMPLETED DATE/TIME: 12/05/2017 12:43 pm REASON FOR STUDY: PAIN LEFT ARM C34.32 MALIGNANT NEOPLASM OF LOWER LOBE, LEFT BRONCHUS OR CARMENCITA M79.60 2 PAIN IN LEFT ARM COMPARISON: 02/16/2015. NUMBER OF VIEWS: Five views. TECHNIQUE: AP, lateral, obliques and odontoid radiographic images acquired of the cervical spine. LIMITATIONS: None. FINDINGS: MINERALIZATION: Normal. ALIGNMENT: Anatomic. VERTEBRAE: Vertebral bodies of normal height. DISCS: Disc space narrowing with osteophytes, most pronounced at C5-C6 and C6-C7. FORAMINA: Foraminal narrowing on the right at C5-C6 and C6-C7 and on the left at C6-C7 due to posteri or osteophytes. LATERAL AND POSTERIOR ELEMENTS: Facets, lateral masses and spinous processes without significant find ings. HARDWARE: None in the spine. SOFT TISSUES: No masses or calcifications. Lung apices clear. OTHER: No other significant finding. IMPRESSION: STABLE CHRONIC DEGENERATIVE CHANGES. NO ACUTE FINDINGS. TECHNICAL DOCUMENTATION: JOB ID: [id number]- All Rights Reserved
== END ==
LOC: OD 12:16
PROVIDERS: ATTEND Family Medicine
DX: M79.602 Pain in left arm (principal); C34.32 Malignant neoplasm of lower lobe, left bronchus or lung
CPT/HCPCS: 71046; 72050

== ENCOUNTER → 2018-01-05 | Outpatient (CLI) | payer MEDICARE, MEDICAID ==
--- NOTE | 2018-01-06 10:54 | WOMENS IMAGING REPORT ---
EXAM DESCRIPTION: 3D SCREENING MAMMO BILAT COMPLETED DATE/TIME: 01/05/2018 1:31 pm REASON FOR STUDY: ROUTINE SCREENING; Z12.31 Z12.31 ENCNTR SCREEN MAMMOGRAM FOR MALIGNANT NEOPLASM O F LATRELL COMPARISON: 01/02/2017 and 12/20/2015 TECHNIQUE: Standard craniocaudal and mediolateral oblique views of each breast recorded using digita l acquisition and breast tomosynthesis. LIMITATIONS: None. FINDINGS: Findings present which are benign by mammographic criteria. No suspicious masses, calcifi cations or architectural distortion. Pertinent benign findings: Stable benign-appearing calcifications. Read with the assistance of CAD. .[facility] - R2 [employer]ova Version 1.3 .[facility] - R2 Cenova Version 1.3 .[facility] - R2 Cenova Version 2.4 .[facility] - R2 Cenova Version 2.4 .COUNTS INCLUDE 234 BEDS AT THE [facility] - R2 Music Department Chair Version 9.2 Benign mammographic findings may include one or more of the following: Smooth masses, popcorn/rim/co arse calcifications, asymmetries, post-procedure changes, and lesions with long-standing stability. IMPRESSION: BENIGN MAMMOGRAPHIC FINDINGS. BIRADS 2 BREAST DENSITY: b. There are scattered areas of fibroglandular density. BIRAD: 2 BENIGN FINDING(S) RECOMMENDATION: RECOMMENDATION: ROUTINE SCREENING COMMENT: The patient has been notified of the results by letter per SA requirements. Additional no tification policies are in place for contacting patient with suspicious or incomplete findings. Quality ID #225: The [employer] recommends an annual screening mammogram for women aged 40 years or over. This facility utilizes a reminder system to ensure that all patients receive reminder letters, and/or direct phone calls for appointments. This includes reminders for routine scr eening mammograms, diagnostic mammograms, or other Breast Imaging Interventions when appropriate. Th is patient will be placed in the appropriate reminder system. The [employer] (ACR) has developed recommendations for screening MRI of the breast s in certain patient populations, to be used in conjunction with mammography. Breast MRI surveillanc e may be appropriate for women with more than 20% lifetime risk of developing breast cancer as deter mined by genetic testing, significant family history of the disease, or history of mantle radiation f or Hodgkins Disease. ACR Practice Guidelines 2008. DBT Technology DBT is a type of tomographic mammography. With conventional mammography, overlapping breast tissue ma y make lesions difficult to detect, even with good compression. DBT uses an x-ray tube that rotates a round the breast, taking images at different angles. These images are then combined to create thin sl ices of the breast that the radiologist can view as a 3D reconstruction. The [employer] unit can perform full-field digital mammograms (2D imaging); or DBT (3D imaging); or both, in a combination mode that quickly performs both the mammogram and the tomosynthesis scan while the breast is still compressed. PQRS 6045F: Fluoroscopic imaging is not utilized for breast tomosynthesis. TECHNICAL DOCUMENTATION: FINDING NUMBER: (1) ASSESSMENT: (1) JOB ID: [id number] [employer]- All Rights Reserved Reading location - IP/workstation name: [email or web address]
== END ==
LOC: WI 11:10
PROVIDERS: ATTEND Physician Assistant
DX: Z12.31 Encounter for screening mammogram for malignant neoplasm of breast (principal)
CPT/HCPCS: 77063; 77067

== ENCOUNTER → 2018-01-18 | Outpatient (CLI) | payer MEDICARE, MEDICAID ==
--- NOTE | 2018-01-19 08:57 | RADIOLOGY REPORT (SQ) ---
EXAM DESCRIPTION: PET CT SKULL/THIGH COMPLETED DATE/TIME: 01/18/2018 6:30 pm REASON FOR STUDY: LUNG CANCER C34.32 MALIGNANT NEOPLASM OF LOWER LOBE, LEFT BRONCHUS OR CARMENCITA COMPARISON: 04/20/2017 and 09/15/2016. RADIONUCLIDE AND DOSE: 10.0 mCi F18 FDG The route of agent administration: Intravenous FASTING BLOOD SUGAR: 50 mg/dl CONTRAST TYPE AND DOSE: No CT contrast given. TECHNIQUE: Blood glucose level was verified. Above dose of FDG was injected intravenously. 2-D seg mented attenuation correction images were obtained from the base of the skull to the midthighs. Nonc ontrast CT images were obtained for attenuation correction and fusion with emission images. CT image s were performed without oral or intravenous contrast and are not sensitive for parenchymal lesions. A series of overlapping emission PET images were obtained. Images reviewed and manipulated at [facility] work station by the radiologist. Images stored on PACS. LIMITATIONS: None. FINDINGS: HEAD AND NECK: No areas of abnormal metabolic activity in the soft tissues of the head and neck. CHEST: Again seen is a focal pneumatocele in the left lower lobe with adjacent spiculated soft tissue mass. The soft tissue component measures 1.4 cm, unchanged. There is now a small area of central c avitation. Mean SUV value 3.27. Prior value 4.07. Metallic markers in the adjacent left lower lobe . No new lung nodules or masses. No suspicious mediastinal or hilar adenopathy. ABDOMEN AND PELVIS: There is a focal area of increased activity in the right iliac region located imm ediately adjacent to the bifurcation of the internal and external iliac arteries. No associated soft tissue mass. Based on its appearance and location, this is probably incidental activity in the uret er. No other areas of abnormal metabolic activity in the abdomen or pelvis. Expected physiologic ac tivity is present in the genitourinary system and bowel. PROXIMAL LOWER EXTREMITIES: No areas of abnormal metabolic activity in the soft tissues of the lower extremities. BONES: No abnormal metabolic activity in the visualized skeleton. ADDITIONAL CT FINDINGS: Calcified uterine fibroids. Colonic diverticulosis. No other significant fi ndings. OTHER: Background blood pool activity mean SUV value 1.47. Background liver activity mean SUV value 2.1. IMPRESSION: SPICULATED SOFT TISSUE MASS IN THE LEFT LOWER LOBE UNCHANGED IN SIZE BUT THERE HAS BEEN SOME DECREASE IN MEAN SUV VALUE. THERE IS NOW A SMALL AREA OF CENTRAL CAVITATION. NO NEW LUNG NODUL ES OR MASSES AND NO WORRISOME HILAR OR MEDIASTINAL ADENOPATHY. NO OTHER SIGNIFICANT FINDINGS OTHER T LARA PRESUMED ACTIVITY IN THE RIGHT URETER. TECHNICAL DOCUMENTATION: JOB ID: [id number] [employer]- All Rights Reserved Reading location - IP/workstation name: [email or web address]
== END ==
LOC: RAD 15:07
PROVIDERS: ATTEND Internal Medicine
DX: C34.32 Malignant neoplasm of lower lobe, left bronchus or lung (principal)
CPT/HCPCS: 78815; A9552

== ENCOUNTER 2018-02-02 08:37 | Day surgery (SDC) | payer MEDICARE, MEDICAID ==
[~2018-02-02 08:37] MED LIST changes: -ALBUTEROL SULFATE 0.083% NEB 2.5 MG/3 ML AMPUL NEB ONE; +PROPOFOL INJ 200 MG/20 ML VIAL IV ONE
[2018-02-02] MEDS ORDERED: PROPOFOL INJ 200 MG/20 ML VIAL IV ONE (10:22)
[2018-02-02 10:34] VITALS: BP 152/79
--- NOTE | 2018-02-02 13:47 | Operative Report ---
Operative Report DATE OF SURGERY: 02/02/18 Operative Report: The risks, benefits and alternatives of the procedure including risks of bleeding, perforation requiring surgery are explained to the patient in detail and informed consent was obtained. Patient is taken back to the endoscopy suite and placed in the left, lateral decubital position. Timeout was called. Propofol medications administered. A rectal examination is done which did not reveal any masses, tears or fissures. An Olympus videoscope was inserted into the patient's rectum. The scope was then carefully advanced all the way to the cecum. The cecum was identified by the usual anatomical landmarks including the ileocecal valve as well as the appendiceal office. Photodocumentation was obtained. The scope was then sequentially pulled back via the various segments of the colon including the ascending colon, hepatic flexure, transverse colon, splenic flexure, descending colon finding to the rectosigmoid portions of the colon. Prep is poor. Retroflexion maneuvers performed. PREOPERATIVE DIAGNOSIS: Bright red blood per rectum POSTOPERATIVE DIAGNOSIS: Internal hemorrhoids. Diverticulosis. Polyp at the hepatic flexure removed via snare polypectomy but no tissue retrieved. Mild right-sided colon inflammation status post biopsy rule out lymphocytic, microscopic, collagenous colitis. Prep is not adequate and certain areas therefore the presence or the absence of polyps cannot be mentioned in such areas. OPERATION: Colonoscopy with snare polypectomy. Colonoscopy with biopsy SURGEON: MELANIE MERCADO ANESTHESIA: LMAC TISSUE REMOVED OR ALTERED: As noted above. COMPLICATIONS: None. ESTIMATED BLOOD LOSS: None. INTRAOPERATIVE FINDINGS: As noted above. PROCEDURE: Patient tolerated procedure well. No immediate postprocedure comp occasions are noted. Patient discharged in good condition. Discharge date 02/02/2018. Discharge diet: Regular. Discharge activity: Regular. We will await pathology. Due to the inadequate prep she will need a surveillance colonoscopy in 1 year. Patient is instructed call the office or proceed to the emergency room should there be any further problems or questions.
== END 2018-02-02 10:40 | disposition home or self-care (01) ==
LOC: END 08:37
PROVIDERS: ATTEND Internal Medicine Gastroenterology
DX: K57.30 Diverticulosis of large intestine without perforation or abscess without bleeding (principal); K63.5 Polyp of colon; K52.9 Noninfective gastroenteritis and colitis, unspecified; K64.8 Other hemorrhoids; K92.1 Melena; I10 Essential (primary) hypertension; Z87.891 Personal history of nicotine dependence; Z79.51 Long term (current) use of inhaled steroids; Z79.899 Other long term (current) drug therapy; Z88.0 Allergy status to penicillin
CPT/HCPCS: 45380; 45388; 811; J2704

== ENCOUNTER → 2018-03-06 | Outpatient (CLI) | payer MEDICARE, MEDICAID ==
--- NOTE | 2018-03-06 10:00 | RADIOLOGY REPORT (SQ) ---
EXAM DESCRIPTION: MRI LT UPPER JOINT WITHOUT COMPLETED DATE/TIME: 03/06/2018 9:32 am REASON FOR STUDY: SPRAIN OF LEFT ROTATOR CUFF CAPSULE S43.422A SPRAIN OF LEFT ROTATOR CUFF CAPSULE, INITIAL ENCOUN COMPARISON: 1914 TECHNIQUE: Left shoulder images acquired and stored on PACS. Multiplanar imaging to include fat sens itive sequences such as T1, water sensitive sequences such as FST2/STIR, cartilage sensitive sequence s such as FSPD/gradient-echo sequences. LIMITATIONS: None. FINDINGS: BONE MARROW AND CORTEX: No worrisome bone lesions or marrow replacement. No occult fractur es. JOINT OR BURSAL EFFUSION: No significant joint or bursal fluid. No suggestion of loose bodies. GLENO-HUMERAL ARTICULATION: Normal articulation. No subluxation. No cystic change. No osteophytes or cartilage loss. ACROMION AND AC JOINT: Type 2. No down-sloping or distal spur. Sub-acromial space maintained. No si gnificant AC joint arthropathy. ROTATOR CUFF AND INTERVAL: No significant tear or signal alteration. No cuff muscle atrophy. Mild tendinopathy. No significant cuff tear. LABRUM AND BICEPS LABRAL COMPLEX: Intact. No labral tear. Intra-articular long-head biceps tendon n ormal. Distal biceps in normal location in bicipital groove. REMAINDER OF LABRUM AND IGHL : No gross tear or paralabral cyst formation. Labral evaluation is less than optimal without joint distention. No thickening of IGHL to suggest adhesive capsulitis. PERIARTICULAR AND ADJACENT SOFT TISSUES: No masses or abnormal nodes. OTHER: No other significant finding. IMPRESSION: Mild tendinopathy. No significant tear. TECHNICAL DOCUMENTATION: JOB ID: [id number] [employer]- All Rights Reserved Reading location - IP/workstation name: [email or web address]
== END ==
LOC: RAD 08:37
PROVIDERS: ATTEND Physician Assistant
DX: S43.422A Sprain of left rotator cuff capsule, initial encounter (principal); X58.XXXA Exposure to other specified factors, initial encounter

== ENCOUNTER → 2018-04-26 | Outpatient (CLI) | payer MEDICARE, MEDICAID ==
--- NOTE | 2018-04-27 18:32 | RADIOLOGY REPORT (SQ) ---
EXAM DESCRIPTION: PET CT SKULL/THIGH COMPLETED DATE/TIME: 04/26/2018 7:15 pm REASON FOR STUDY: LUNG CANCER C34.32 MALIGNANT NEOPLASM OF LOWER LOBE, LEFT BRONCHUS OR CARMENCITA COMPARISON: PET-CT 01/18/2018, 04/20/2017, 09/15/2016 CT chest 03/21/2017 RADIONUCLIDE AND DOSE: 11.8 mCi F18 FDG The route of agent administration: Intravenous FASTING BLOOD SUGAR: 111 mg/dl CONTRAST TYPE AND DOSE: No CT contrast given. TECHNIQUE: Blood glucose level was verified. Above dose of FDG was injected intravenously. 2-D seg mented attenuation correction images were obtained from the base of the skull to the midthighs. Nonc ontrast CT images were obtained for attenuation correction and fusion with emission images. CT image s were performed without oral or intravenous contrast and are not sensitive for parenchymal lesions. A series of overlapping emission PET images were obtained. Images reviewed and manipulated at [facility] work station by the radiologist. Images stored on PACS. LIMITATIONS: None. FINDINGS: HEAD AND NECK: No areas of abnormal metabolic activity in the soft tissues of the head and neck. CHEST: Patient is post radiation therapy treatment of the left lower lobe nodule. Radial peak treatm ent markers are present the left lower lobe. A persistent 1.5 cm nodule is seen adjacent to the radi otherapy markers. There is surrounding hazy airspace disease in a bandlike distribution at the left lung base with diffuse lung parenchymal activity SUV 2.3 in this area. This likely represents post r adiation change. The nodule itself has SUV today at 2.7 (was 3.3 on 01/18/2018). There is bandlike scarring at both lung bases in the posterior costophrenic sulci. Remainder of the lungs exhibit hyperinflation and hyperlucent from obstructive disease. No pleural effusions. No pne umothorax. No metabolically active mediastinal lymph nodes are present. ABDOMEN AND PELVIS: No areas of abnormal metabolic activity in the abdomen or pelvis. Expected physi ologic activity is present in the genitourinary system and bowel. PROXIMAL LOWER EXTREMITIES: No areas of abnormal metabolic activity in the soft tissues of the lower extremities. BONES: No abnormal metabolic activity in the visualized skeleton. ADDITIONAL CT FINDINGS: Minimal carotid bifurcation calcification. Aortic valve calcification. Smal l hiatal hernia. Scattered colonic diverticuli. Calcified fibroids in the uterus. OTHER: Liver background activity 2.4 SUV. Blood pool background activity 1.9 SUV IMPRESSION: Further decrease in metabolic activity of left lower lobe nodule. Surrounding low level left lower lobe lung parenchymal activity likely represents post radiation change. TECHNICAL DOCUMENTATION: JOB ID: [id number] [employer]- All Rights Reserved Reading location - IP/workstation name: [email or web address]
== END ==
LOC: RAD 14:45
PROVIDERS: ATTEND Internal Medicine
DX: C34.32 Malignant neoplasm of lower lobe, left bronchus or lung (principal)
CPT/HCPCS: 78815; A9552

== ENCOUNTER → 2018-11-13 | Outpatient (CLI) | payer MEDICARE, MEDICAID ==
--- NOTE | 2018-11-13 10:37 | RADIOLOGY REPORT (SQ) ---
EXAM DESCRIPTION: CT CHEST WITH COMPLETED DATE/TIME: 11/13/2018 9:16 am REASON FOR STUDY: LUNG CA (C34.32) C34.32 MALIGNANT NEOPLASM OF LOWER LOBE, LEFT BRONCHUS OR CARMENCITA COMPARISON: 07/31/2018. PET-CT 04/26/2018. TECHNIQUE: CT scan of the chest performed using helical scanning technique with dynamic intravenous contrast injection. Images reviewed with lung, soft tissue and bone windows. Reconstructed coronal and sagittal MPR and MIP images reviewed. All images stored on PACS. All CT scanners at this facility use dose modulation, iterative reconstruction, and/or weight based d osing when appropriate to reduce radiation dose to as low as reasonably achievable (ALARA). [facility]: Dose Right [facility]: CareDose [facility]: Dose Right [facility]: Teradose 4D [facility]: [employer] CONTRAST TYPE AND DOSE: contrast/concentration: Isovue 350.00 mg/ml; Total Contrast Delivered: 80.0 ml; Total Saline Delivered: 55.0 ml RENAL FUNCTION: Creatinine 0.9 RADIATION DOSE: CT Rad equipment meets quality standard of care and radiation dose reduction techniq ues were employed. CTDIvol: 3.8 mGy. DLP: 135 mGy-cm. . LIMITATIONS: None. FINDINGS: LUNGS AND PLEURA: Patient is status post radiation therapy of left lower lobe pleural-base d nodule. Nodule measures 1.5 cm not significantly changed. Stable area of bandlike scarring in the adjacent left lower lobe radiation seed markers. Stable bandlike scarring in the right lower lobe. No developing nodules or infiltrate. HILAR AND MEDIASTINAL STRUCTURES: No identified masses or abnormal nodes. HEART AND VASCULAR STRUCTURES: No aneurysm or dissection. No central pulmonary emboli. No pericardi al effusion. HARDWARE: None in the chest. UPPER ABDOMEN: No significant findings. Limited exam. THYROID AND OTHER SOFT TISSUES: No masses. No adenopathy. BONES: Nothing acute. OTHER: No other significant finding. IMPRESSION: Stable nodule left lower lobe. TECHNICAL DOCUMENTATION: JOB ID: [id number] Quality ID # [id number]: Final reports with documentation of one or more dose reduction techniques (e.g., Au tomated exposure control, adjustment of the mA and/or kV according to patient size, use of iterative reconstruction technique) 2010 [employer]- All Rights Reserved Reading location - IP/workstation name: [email or web address]
== END ==
LOC: RAD 08:18
PROVIDERS: ATTEND Internal Medicine
DX: C34.32 Malignant neoplasm of lower lobe, left bronchus or lung (principal)
CPT/HCPCS: 71260; 82565

== ENCOUNTER → 2019-01-08 | Outpatient (CLI) | payer MEDICARE, MEDICAID ==
--- NOTE | 2019-01-08 10:31 | WOMENS IMAGING REPORT ---
EXAM DESCRIPTION: 3D SCREENING MAMMO BILAT COMPLETED DATE/TIME: 01/08/2019 9:43 am REASON FOR STUDY: ROUTINE 3D BILATERAL SCREENING Z12.31 Z12.31 ENCNTR SCREEN MAMMOGRAM FOR MALIGNAN T NEOPLASM OF LATRELL COMPARISON: Multiple since 2013 TECHNIQUE: Standard craniocaudal and mediolateral oblique views of each breast recorded using digita l acquisition and breast tomosynthesis. LIMITATIONS: None. FINDINGS: Findings present which are benign by mammographic criteria. No suspicious masses, calcifi cations or architectural distortion. Pertinent benign findings: Benign bilateral breast parenchymal calcifications Read with the assistance of CAD. .[facility] - R2 [employer] Version 1.3 .[facility] Imaging - R2 Cenova Version 2.1 .[facility] Imaging - R2 C[employer] Version 2.4 .[facility] - R2 Cenova Version 2.4 .[facility] - R2 [employer]ist Version 9.2 Benign mammographic findings may include one or more of the following: Smooth masses, popcorn/rim/co arse calcifications, asymmetries, post-procedure changes, and lesions with long-standing stability. IMPRESSION: BENIGN MAMMOGRAPHIC FINDINGS. BIRADS 2 BREAST DENSITY: b. There are scattered areas of fibroglandular density. BIRAD: 2 BENIGN FINDING(S) RECOMMENDATION: RECOMMENDATION: ROUTINE SCREENING COMMENT: The patient has been notified of the results by letter per SA requirements. Additional no tification policies are in place for contacting patient with suspicious or incomplete findings. Quality ID #225: The [employer] [employer] recommends an annual screening mammogram for women aged 40 years or over. This facility utilizes a reminder system to ensure that all patients receive reminder letters, and/or direct phone calls for appointments. This includes reminders for routine scr eening mammograms, diagnostic mammograms, or other Breast Imaging Interventions when appropriate. Th is patient will be placed in the appropriate reminder system. The [employer] (ACR) has developed recommendations for screening MRI of the breast s in certain patient populations, to be used in conjunction with mammography. Breast MRI surveillanc e may be appropriate for women with more than 20% lifetime risk of developing breast cancer as deter mined by genetic testing, significant family history of the disease, or history of mantle radiation f or Hodgkins Disease. ACR Practice Guidelines 2008. DBT Technology DBT is a type of tomographic mammography. With conventional mammography, overlapping breast tissue ma y make lesions difficult to detect, even with good compression. DBT uses an x-ray tube that rotates a round the breast, taking images at different angles. These images are then combined to create thin sl ices of the breast that the radiologist can view as a 3D reconstruction. The [employer] unit can perform full-field digital mammograms (2D imaging); or DBT (3D imaging); or both, in a combination mode that quickly performs both the mammogram and the tomosynthesis scan while the breast is still compressed. PQRS 6045F: Fluoroscopic imaging is not utilized for breast tomosynthesis. TECHNICAL DOCUMENTATION: FINDING NUMBER: (1) ASSESSMENT: (1) JOB ID: [id number] [employer]- All Rights Reserved Reading location - IP/workstation name: [email or web address]
== END ==
LOC: WI 08:21
PROVIDERS: ATTEND Family Medicine
DX: Z12.31 Encounter for screening mammogram for malignant neoplasm of breast (principal)
CPT/HCPCS: 77063; 77067

== ENCOUNTER → 2019-02-15 | Outpatient (CLI) | payer MEDICARE, MEDICAID ==
--- NOTE | 2019-02-15 12:16 | RADIOLOGY REPORT (SQ) ---
EXAM DESCRIPTION: CT CHEST WITH COMPLETED DATE/TIME: 02/15/2019 9:49 am REASON FOR STUDY: LUNG CA (C34.32) C34.32 MALIGNANT NEOPLASM OF LOWER LOBE, LEFT BRONCHUS OR CARMENCITA COMPARISON: PET-CT 10 01/18/2018, 04/26/2018 CT chest 03/21/2017, 07/31/2018, 11/13/2018 TECHNIQUE: CT scan of the chest performed using helical scanning technique with dynamic intravenous contrast injection. Images reviewed with lung, soft tissue and bone windows. Reconstructed coronal and sagittal MPR and MIP images reviewed. All images stored on PACS. All CT scanners at this facility use dose modulation, iterative reconstruction, and/or weight based d osing when appropriate to reduce radiation dose to as low as reasonably achievable (ALARA). [facility]: Dose Right [facility]: CareDose [facility]: Dose Right [facility]: Teradose 4D [facility]: [employer] CONTRAST TYPE AND DOSE: contrast/concentration: Isovue 350.00 mg/ml; Total Contrast Delivered: 80.0 ml; Total Saline Delivered: 55.0 ml RENAL FUNCTION: Creatinine 0.9 RADIATION DOSE: CT Rad equipment meets quality standard of care and radiation dose reduction techniq ues were employed. CTDIvol: 3.2 mGy. DLP: 119 mGy-cm. . LIMITATIONS: None. FINDINGS: LUNGS AND PLEURA: There is stable nodular scarring in the left posterior costophrenic sulc us, unchanged from 11/13/2018 and 07/31/2018. Again, radiotherapy treatment markers are present in the left lower lobe with adjacent bandlike post radiotherapy treatment scarring. No acute infiltrates. No pleural effusion. No pneumothorax. Stable changes of obstructive lung dis ease at the apices, stable bandlike scarring in the right posterior costophrenic sulcus. HILAR AND MEDIASTINAL STRUCTURES: No identified masses or abnormal nodes. HEART AND VASCULAR STRUCTURES: No aneurysm or dissection. No central pulmonary emboli. No pericardi al effusion. HARDWARE: None in the chest. UPPER ABDOMEN: Fatty liver. Stable small splenic hemangioma 1 cm in size THYROID AND OTHER SOFT TISSUES: No masses. No adenopathy. BONES: No significant finding. OTHER: No other significant finding. IMPRESSION: Post treatment changes in the left lower lobe. No findings worrisome for recurrent tumo r TECHNICAL DOCUMENTATION: JOB ID: [id number] Quality ID # 436: Final reports with documentation of one or more dose reduction techniques (e.g., Au tomated exposure control, adjustment of the mA and/or kV according to patient size, use of iterative reconstruction technique) 2010 [employer]- All Rights Reserved Reading location - IP/workstation name: [email or web address]-
== END ==
LOC: RAD 09:06
PROVIDERS: ATTEND Internal Medicine
DX: C34.32 Malignant neoplasm of lower lobe, left bronchus or lung (principal); D18.03 Hemangioma of intra-abdominal structures
CPT/HCPCS: 71260; 82565

== ENCOUNTER → 2019-06-09 | Outpatient (CLI) | payer MEDICARE, MEDICAID ==
--- NOTE | 2019-06-09 11:57 | RADIOLOGY REPORT (SQ) ---
EXAM DESCRIPTION: CT CHEST WITHOUT COMPLETED DATE/TIME: 06/09/2019 9:34 am REASON FOR STUDY: C34.32 MALIGNANT NEOPLASM OF LOWER LOBE, LEFT BRONCHUS OR LUNG C34.32 MALIGNANT N EOPLASM OF LOWER LOBE, LEFT BRONCHUS OR CARMENCITA COMPARISON: 02/15/2019 TECHNIQUE: CT scan performed of the chest without intravenous contrast. Images reviewed with lung, soft tissue and bone windows. Reconstructed coronal and sagittal MPR images reviewed. All images st ored on PACS. All CT scanners at this facility use dose modulation, iterative reconstruction, and/or weight based d osing when appropriate to reduce radiation dose to as low as reasonably achievable (ALARA). [facility]: Dose Right [facility]: CareDose [facility]: Dose Right [facility]: Teradose 4D [facility]: [employer] RADIATION DOSE: CT Rad equipment meets quality standard of care and radiation dose reduction techniq ues were employed. CTDIvol: 3.8 mGy. DLP: 144 mGy-cm. mGy. LIMITATIONS: No technical limitations. FINDINGS: LUNGS AND PLEURA: Post radiation scarring in the left base. Markers are present. Limited stable pleural/ parenchymal scarring in the right base. No new pulmonary masses. HILAR AND MEDIASTINAL STRUCTURES: No identified masses or abnormal nodes. No obvious aneurysm. HEART AND VASCULAR STRUCTURES: No aneurysm. No pericardial effusion. UPPER ABDOMEN: No significant findings. Limited exam. THYROID AND OTHER SOFT TISSUES: No masses. No adenopathy. BONES: No significant finding. HARDWARE: None in the chest. OTHER: No other significant findings. IMPRESSION: Post treatment changes in the left base. Chronic scarring in the right base. No eviden ce of new or recurrent disease in the thorax. TECHNICAL DOCUMENTATION: JOB ID: [id number] Quality ID # 436: Final reports with documentation of one or more dose reduction techniques (e.g., Au tomated exposure control, adjustment of the mA and/or kV according to patient size, use of iterative reconstruction technique) 2010 [employer]- All Rights Reserved Reading location - IP/workstation name: [email or web address]
== END ==
LOC: RAD 09:21
PROVIDERS: ATTEND Internal Medicine
DX: C34.32 Malignant neoplasm of lower lobe, left bronchus or lung (principal)
CPT/HCPCS: 71250

== ENCOUNTER → 2019-08-13 | Outpatient (CLI) | payer OTHER, MEDICAID ==
[2019-08-13 14:54] LABS: ALBUMIN 4.6 g/dL (3.5-5.0); ALKALINE PHOSPHATASE 71 U/L (38-126); ANION GAP 13 (5-19); ASPARTATE AMINO TRANSFERASE 26 U/L (14-36); BILIRUBIN,DIRECT 0.2 mg/dL (0.0-0.4); BILIRUBIN,TOTAL 0.4 mg/dL (0.2-1.3); BLOOD UREA NITROGEN 15 mg/dL (7-20); CALCIUM 9.8 mg/dL (8.4-10.2); CARBON DIOXIDE 25 mmol/L (22-30); CHLORIDE 101 mmol/L (98-107); GLUCOSE 100 mg/dL (75-110); TOTAL PROTEIN 7.8 g/dL (6.3-8.2)
[2019-08-13 15:03] LABS: ABSOLUTE BASOPHILS # (AUTO) 0.1 10^3/uL (0.0-0.2); ABSOLUTE EOSINOPHILS # (AUTO) 0.1 10^3/uL (0.0-0.6); ABSOLUTE LYMPHOCYTES (AUTO) 2.7 10^3/uL (0.5-4.7); ABSOLUTE MONOCYTES (AUTO) 0.8 10^3/uL (0.1-1.4); ABSOLUTE NEUT (AUTO) 3.7 10^3/uL (1.7-8.2); BASOPHILS % (AUTO) 0.7 % (0-2); EOSINOPHILS % (AUTO) 0.8 % (0-6); HEMATOCRIT 35.7 % (36.0-47.0); HEMOGLOBIN 12.3 g/dL (12.0-15.5); LYMPHOCYTES % (AUTO) 37.3 % (13-45); MEAN CORPUSCULAR HEMOGLOBIN 29.3 pg (27.0-33.4); MEAN CORPUSCULAR HGB CONC 34.6 g/dL (32.0-36.0); MEAN CORPUSCULAR VOLUME 85 fl (80-97); MONOCYTES % (AUTO) 10.9 % (3-13); PLATELET COUNT 275 10^3/uL (150-450); RED BLOOD COUNT 4.21 10^6/uL (3.72-5.28); RED CELL DISTRIBUTION WIDTH 16.1 % (11.5-14.0); SEGMENTED NEUTROPHILS % (AUTO) 50.3 % (42-78); TOTAL CELLS COUNTED % (AUTO) 100 %; WHITE BLOOD COUNT 7.3 10^3/uL (4.0-10.5)
== END ==
LOC: OD 13:52
PROVIDERS: ATTEND Orthopaedic Surgery
DX: Z11.2 Encounter for screening for other bacterial diseases (principal); I10 Essential (primary) hypertension
CPT/HCPCS: 36415; 80053; 85025; 87070

== ENCOUNTER → 2019-10-15 | Outpatient (CLI) | payer MEDICARE, MEDICAID ==
--- NOTE | 2019-10-15 13:47 | RADIOLOGY REPORT (SQ) ---
EXAM DESCRIPTION: CT CHEST WITHOUT COMPLETED DATE/TIME: 10/15/2019 10:36 am REASON FOR STUDY: C34.32 MALIGNANT NEOPLASM OF LOWER LOBE, LEFT BRONCHUS OR LUNG C34.32 MALIGNANT N EOPLASM OF LOWER LOBE, LEFT BRONCHUS OR CARMENCITA COMPARISON: 06/09/2019 TECHNIQUE: CT scan performed of the chest without intravenous contrast. Images reviewed with lung, soft tissue and bone windows. Reconstructed coronal and sagittal MPR images reviewed. All images st ored on PACS. All CT scanners at this facility use dose modulation, iterative reconstruction, and/or weight based d osing when appropriate to reduce radiation dose to as low as reasonably achievable (ALARA). [facility]: Dose Right [facility]: CareDose [facility]: Dose Right [facility]: Teradose 4D [facility]: [employer] RADIATION DOSE: CT Rad equipment meets quality standard of care and radiation dose reduction techniq ues were employed. CTDIvol: 3.5 mGy. DLP: 128 mGy-cm. mGy. LIMITATIONS: No technical limitations. FINDINGS: LUNGS AND PLEURA: Stable irregular parenchymal change within the left lung base and fiduci al markers. Stable pleural-based irregular opacity within the right posterior lower lobe. No new di screte nodules or masses. Emphysematous change. No new airspace disease. No pleural effusion or pn eumothorax. HILAR AND MEDIASTINAL STRUCTURES: No discrete mediastinal, hilar or axillary adenopathy. HEART AND VASCULAR STRUCTURES: Normal heart size. Coronary atherosclerosis. No pericardial effusion . UPPER ABDOMEN: No significant findings. Limited exam. THYROID AND OTHER SOFT TISSUES: No masses. No adenopathy. BONES: No significant finding. HARDWARE: None in the chest. OTHER: No other significant findings. IMPRESSION: Stable treatment change and bilateral lower lobe parenchymal opacities compared to prior . No evidence of new intrathoracic disease or other acute intrathoracic process. TECHNICAL DOCUMENTATION: JOB ID: [id number] Quality ID # 436: Final reports with documentation of one or more dose reduction techniques (e.g., Au tomated exposure control, adjustment of the mA and/or kV according to patient size, use of iterative reconstruction technique) 2010 [employer]- All Rights Reserved Reading location - IP/workstation name: [facility]-
== END ==
LOC: RAD 10:25
PROVIDERS: ATTEND Physician Assistant Medical
DX: C34.32 Malignant neoplasm of lower lobe, left bronchus or lung (principal)
CPT/HCPCS: 71250

== ENCOUNTER → 2020-01-12 | Outpatient (CLI) | payer MEDICARE, MEDICAID ==
--- NOTE | 2020-01-12 09:21 | WOMENS IMAGING REPORT ---
EXAM DESCRIPTION: 3D SCREENING MAMMO BILAT COMPLETED DATE/TIME: 01/12/2020 7:48 am REASON FOR STUDY: ROUTINE BILATERAL SCREENING;Z12.31 Z12.31 ENCNTR SCREEN MAMMOGRAM FOR MALIGNANT N EOPLASM OF LATRELL COMPARISON: Multiple since 2013 EXAM PARAMETERS: Views: Standard craniocaudal and mediolateral oblique views of each breast recorded using digital acquisition and breast tomosynthesis. Read with the assistance of CAD. .[facility] [place] - [employer] Spr[employer] Operator Version 9.2 LIMITATIONS: None. FINDINGS: No suspicious masses, suspicious calcifications or architectural distortion. No areas of c oncern. IMPRESSION: NEGATIVE MAMMOGRAM. BIRADS 1. BREAST DENSITY: b. There are scattered areas of fibroglandular density. BIRAD: ASSESSMENT: 1 NEGATIVE RECOMMENDATION: ROUTINE SCREENING Please continue yearly bilateral screening mammography/tomosynthesis in January 2021 COMMENT: The patient has been notified of the results by letter per MQSA requirements. Additional no tification policies are in place for contacting patient with suspicious or incomplete findings. Quality ID #225: The [place] [employer] recommends an annual screening mammogram for women aged 40 years or over. This facility utilizes a reminder system to ensure that all patients receive reminder letters, and/or direct phone calls for appointments. This includes reminders for routine scr eening mammograms, diagnostic mammograms, or other Breast Imaging Interventions when appropriate. Th is patient will be placed in the appropriate reminder system. TECHNICAL DOCUMENTATION: FINDING NUMBER: (1) ASSESSMENT: (1) JOB ID: [id number] 2010 [employer]- All Rights Reserved Reading location - IP/workstation name: [email or web address]
== END ==
LOC: WI 07:30
PROVIDERS: ATTEND Physician Assistant
DX: Z12.31 Encounter for screening mammogram for malignant neoplasm of breast (principal)
CPT/HCPCS: 77063; 77067

== ENCOUNTER → 2020-04-18 | Outpatient (CLI) | payer MEDICARE, MEDICAID ==
--- NOTE | 2020-04-18 13:36 | RADIOLOGY REPORT (SQ) ---
EXAM DESCRIPTION: CT CHEST WITHOUT IMAGES COMPLETED DATE/TIME: 04/18/2020 10:23 am REASON FOR STUDY: C34.32 MALIGNANT NEOPLASM OF LOWER LOBE, LEFT BRONCHUS OR LUNG C34.32 MALIGNANT N EOPLASM OF LOWER LOBE, LEFT BRONCHUS OR CARMENCITA COMPARISON: 10/15/2019 TECHNIQUE: CT scan performed of the chest without intravenous contrast. Images reviewed with lung, soft tissue and bone windows. Reconstructed coronal and sagittal MPR images reviewed. All images st ored on PACS. All CT scanners at this facility use dose modulation, iterative reconstruction, and/or weight based d osing when appropriate to reduce radiation dose to as low as reasonably achievable (ALARA). [facility]: Dose Right [facility]: CareDose [facility]: Dose Right [facility]: Teradose 4D [facility]: [employer] RADIATION DOSE: CT Rad equipment meets quality standard of care and radiation dose reduction techniq ues were employed. CTDIvol: 3.4 mGy. DLP: 137 mGy-cm. mGy. LIMITATIONS: No technical limitations. FINDINGS: LUNGS AND PLEURA: Persistent parenchymal changes in the left lower lobe. However, there i s an area of confluentc increased masslike density seen best on image 83 that measures 22.2 x 21.1 mm . The stable scarring in the right lower lobe. No other pulmonary nodule is is seen. Emphysematous changes are present. HILAR AND MEDIASTINAL STRUCTURES: No identified masses or abnormal nodes. No obvious aneurysm. HEART AND VASCULAR STRUCTURES: 26 mm aneurysm of the infrarenal abdominal aorta. UPPER ABDOMEN: No significant findings. Limited exam. THYROID AND OTHER SOFT TISSUES: No masses. No adenopathy. BONES: No significant finding. HARDWARE: None in the chest. OTHER: No other significant findings. IMPRESSION: Persistent parenchymal changes in the left lower lobe with an area of confluent increase d masslike density as described. Consider PET-CT. Consider biopsy. TECHNICAL DOCUMENTATION: JOB ID: [id number] Quality ID # 436: Final reports with documentation of one or more dose reduction techniques (e.g., Au tomated exposure control, adjustment of the mA and/or kV according to patient size, use of iterative reconstruction technique) 2010 [employer]- All Rights Reserved Reading location - IP/workstation name: [email or web address]
== END ==
LOC: RAD 09:53
PROVIDERS: ATTEND Internal Medicine
DX: C34.32 Malignant neoplasm of lower lobe, left bronchus or lung (principal)
CPT/HCPCS: 71250

== ENCOUNTER → 2020-04-25 | Outpatient (CLI) | payer MEDICARE, MEDICAID ==
--- NOTE | 2020-04-26 13:42 | RADIOLOGY REPORT (SQ) ---
EXAM DESCRIPTION: PET CT SKULL/THIGH IMAGES COMPLETED DATE/TIME: 04/25/2020 3:26 pm REASON FOR STUDY: (C34.32)MALIGNANT NEOPLASM OF LOWER LOBE, LEFT BRONCHUS OR LUNG C34.32 MALIGNANT NEOPLASM OF LOWER LOBE, LEFT BRONCHUS OR CARMENCITA COMPARISON: PET-CT 09/15/2016, 04/26/2018, 01/18/2018 CT chest 07/31/2018, 10/15/2019, 04/18/2020 RADIONUCLIDE AND DOSE: 7.4 mCi F18 FDG The route of agent administration: Intravenous FASTING BLOOD SUGAR: 94 mg/dl CONTRAST TYPE AND DOSE: No CT contrast given. TECHNIQUE: Blood glucose level was verified. Above dose of FDG was injected intravenously. 2-D seg mented attenuation correction images were obtained from the base of the skull to the midthighs. Nonc ontrast CT images were obtained for attenuation correction and fusion with emission images. CT image s were performed without oral or intravenous contrast and are not sensitive for parenchymal lesions. A series of overlapping emission PET images were obtained. [facility] by the radiologist. Images stored on PACS. LIMITATIONS: None. FINDINGS: HEAD AND NECK: No areas of abnormal metabolic activity in the soft tissues of the head and neck. CHEST: No areas of abnormal metabolic activity in the chest. There is a thick rind of soft tissue along the posterior aspect of the left lower lobe fiducials for radiation therapy. This rind of tissue has SUV of 1.6 to 1.8. Non metabolic scarring is present in the right posterior costophrenic sulcus, unchanged from 2016 PET -CT with SUV of 1.2. ABDOMEN AND PELVIS: No areas of abnormal metabolic activity in the abdomen or pelvis. Expected physi ologic activity is present in the genitourinary system and bowel. PROXIMAL LOWER EXTREMITIES: No areas of abnormal metabolic activity in the soft tissues of the lower extremities. BONES: No abnormal metabolic activity in the visualized skeleton. ADDITIONAL CT FINDINGS: Ectasia distal thoracic aorta 3 cm diameter. Colonic diverticuli. Heavily c alcified aortic valve. OTHER: Liver background activity 2.5 SUV. Blood pool background activity 1.9 SUV IMPRESSION: Although the soft tissue left lower lobe adjacent to fiducials is slightly more prominen t on recent CT, this exhibits no significant metabolic activity on today's PET-CT. TECHNICAL DOCUMENTATION: JOB ID: [id number] 2011 [employer]- All Rights Reserved Reading location - IP/workstation name: [email or web address]
== END ==
LOC: RAD 10:07
PROVIDERS: ATTEND Internal Medicine
DX: C34.32 Malignant neoplasm of lower lobe, left bronchus or lung (principal)
CPT/HCPCS: 78815; A9552

== ENCOUNTER 2020-05-19 10:06 | Emergency (ER) | payer MEDICARE, MEDICAID ==
--- NOTE | 2020-05-19 10:57 | ER Document Report ---
ED Medical Screen (RME) - General Chief Complaint: Dizziness Stated Complaint: DIZZINESS,CONFUSION Time Seen by Provider: 05/19/20 10:52 Primary Care Provider: JALIL GERMAIN MD [Primary Care Provider] - Follow up as needed Information source: Patient Notes: This 59-year-old female presented to the emergency room today stating that she is been frequently getting dizzy and passing out over the last 3 weeks she presents with her daughter who also states that her memory is not quite the same and has had a substantial decline over the last 2 to 3 weeks. She says that she tends to have these episodes of dizziness and passing out after she has a cigarette and a drink. TRAVEL OUTSIDE OF THE [place] IN LAST 30 DAYS: No - Related Data Allergies/Adverse Reactions: honey [Honey] Allergy (Intermediate, Verified 02/02/18 08:49) Hives, tongue swelling Honey Bee Venom Protein [From Honey Bee Treatment] Allergy (Intermediate, Ve rified 02/02/18 08:49) Hives, tongue swelling Penicillins Allergy (Intermediate, Verified 02/02/18 08:49) hives, tongue swelling chocolate Allergy (Intermediate, Uncoded 02/02/18 08:49) Hives, tongue swelling POWDER GLOVES Allergy (Intermediate, Uncoded 02/02/18 08:49) RASH tomatoes Allergy (Intermediate, Uncoded 02/02/18 08:49) Hives, tongue swelling Past Medical History - Past Medical History Cardiac Medical History: Reports: Hx Hypertension Denies: Hx Coronary Artery Disease, Hx Heart Attack Pulmonary Medical History: Reports: Hx Asthma, Hx Bronchitis, Hx COPD Denies: Hx Pneumonia Neurological Medical History: Denies: Hx Cerebrovascular Accident, Hx Seizures Renal/ Medical History: Denies: Hx Peritoneal Dialysis Malignancy Medical History: Reports: Hx Lung Cancer Musculoskeltal Medical History: Denies Hx Arthritis, Reports Hx Gout Skin Medical History: Reports Hx Cellulitis, Reports Hx MRSA Traumatic Medical History: Reports: Hx Fractures Infectious Medical History: Reports: Hx MRSA Past Surgical History: Reports: Hx Hysterectomy - Immunizations Immunizations up to date: Yes Hx Diphtheria, Pertussis, Tetanus Vaccination: Yes Physical Exam - Vital signs Vitals: Temp Pulse Resp BP Pulse Ox 98.3 F 96 16 156/75 H 93 05/19/20 10:47 05/19/20 10:47 05/19/20 10:47 05/19/20 10:47 05/19/20 10:47 - Neurological Cognition: Normal Orientation: AAOx4 Henderson Coma Scale Eye Opening: Spontaneous [place] Coma Scale Verbal: Oriented Henderson Coma Scale Motor: Obeys Commands Henderson Coma Scale Total: 15 Speech: Normal Cranial nerves: Normal Course - Vital Signs Vital signs: Temp Pulse Resp BP Pulse Ox 98.3 F 96 16 156/75 H 93 05/19/20 10:47 05/19/20 10:47 05/19/20 10:47 05/19/20 10:47 05/19/20 10:47 Doctor's Discharge - Discharge Referrals: JALIL GERMAIN MD [Primary Care Provider] - Follow up as needed
[2020-05-19 11:39] LABS: ABSOLUTE BASOPHILS # (AUTO) 0.1 10^3/uL (0.0-0.2); ABSOLUTE EOSINOPHILS # (AUTO) 0.1 10^3/uL (0.0-0.6); ABSOLUTE LYMPHOCYTES (AUTO) 2.7 10^3/uL (0.5-4.7); ABSOLUTE MONOCYTES (AUTO) 0.4 10^3/uL (0.1-1.4); ABSOLUTE NEUT (AUTO) 2.3 10^3/uL (1.7-8.2); HEMATOCRIT 36.5 % (36.0-47.0); HEMOGLOBIN 12.6 g/dL (12.0-15.5); LYMPHOCYTES % (AUTO) 48.4 % (13-45); MEAN CORPUSCULAR HEMOGLOBIN 31.1 pg (27.0-33.4); MEAN CORPUSCULAR HGB CONC 34.5 g/dL (32.0-36.0); MEAN CORPUSCULAR VOLUME 90 fl (80-97); MONOCYTES % (AUTO) 6.4 % (3-13); PLATELET COUNT 236 10^3/uL (150-450); RED BLOOD COUNT 4.06 10^6/uL (3.72-5.28); RED CELL DISTRIBUTION WIDTH 16.5 % (11.5-14.0); SEGMENTED NEUTROPHILS % (AUTO) 42.2 % (42-78); TOTAL CELLS COUNTED % (AUTO) 100 %; WHITE BLOOD COUNT 5.5 10^3/uL (4.0-10.5)
--- NOTE | 2020-05-19 11:43 | RADIOLOGY REPORT (SQ) ---
EXAM DESCRIPTION: CT HEAD WITHOUT IMAGES COMPLETED DATE/TIME: 05/19/2020 11:30 am REASON FOR STUDY: aloc COMPARISON: CT of the head without contrast from 02/20/2017. TECHNIQUE: Axial images acquired through the brain without intravenous contrast. Images reviewed wi th bone, brain and subdural windows. Additional sagittal and coronal reconstructions were generated. Images stored on PACS. All CT scanners at this facility use dose modulation, iterative reconstruction, and/or weight based d osing when appropriate to reduce radiation dose to as low as reasonably achievable (ALARA). [facility]: Dose Right [facility]: CareDose [facility]: Dose Right [facility]: Teradose 4D [facility]: Judobaby RADIATION DOSE: CT Rad equipment meets quality standard of care and radiation dose reduction techniq ues were employed. CTDIvol: 53.2 mGy. DLP: 1044 mGy-cm. LIMITATIONS: None. FINDINGS: There is no acute intracranial hemorrhage, vascular territorial infarct, extra-axial fluid collection, mass effect or midline shift. The littlejohn-white matter differentiation is preserved. Ther e is no effacement of the cerebral sulci or basal subarachnoid cisterns. The littlejohn-white matter diffe rentiation is preserved. The caliber of the ventricles is concordant with the degree of sulcation. There is no effacement of the cerebral sulci or basal subarachnoid cisterns. The orbits and globes are intact. The paranasal sinuses are clear. There is no fracture of the calv arium. IMPRESSION: No acute intracranial abnormality. EVIDENCE OF ACUTE STROKE: NO. COMMENT: Quality ID # [id number]: Final reports with documentation of one or more dose reduction techniques (e.g., Automated exposure control, adjustment of the mA and/or kV according to patient size, use of iterative reconstruction technique) TECHNICAL DOCUMENTATION: JOB ID: [id number] 2010 [employer]- All Rights Reserved Reading location - IP/workstation name: [email or web address]
--- NOTE | 2020-05-19 11:44 | RADIOLOGY REPORT (SQ) ---
EXAM DESCRIPTION: CHEST 2 VIEWS IMAGES COMPLETED DATE/TIME: 05/19/2020 11:34 am REASON FOR STUDY: aloc COMPARISON: PET from 04/25/2020. EXAM PARAMETERS: NUMBER OF VIEWS: One view. TECHNIQUE: An AP view of the chest was obtained. RADIATION DOSE: NA LIMITATIONS: None. FINDINGS: LUNGS AND PLEURA: Chronic opacities in fiducial markers in the left lower lobe. There is no acute consolidation, ground-glass opacification, pleural effusion or pneumothorax. MEDIASTINUM AND HILAR STRUCTURES: No mediastinal or hilar contour abnormality. HEART AND VASCULAR STRUCTURES: The cardiac silhouette and pulmonary vasculature are within normal mancuso its. BONES: No acute findings. HARDWARE: See above. OTHER: No other finding. IMPRESSION: No acute cardiopulmonary process. TECHNICAL DOCUMENTATION: JOB ID: [id number] 2010 [employer]- All Rights Reserved Reading location - IP/workstation name: [email or web address]
[2020-05-19 11:54] LABS: APPEARANCE,URINE CLEAR; BILIRUBIN,URINE NEGATIVE (NEGATIVE); COLOR,URINE YELLOW; GLUCOSE, URINE NEGATIVE (NEGATIVE); KETONES,URINE TRACE mg/dL (NEGATIVE); LEUKOCYTE ESTERASE,URINE NEGATIVE (NEGATIVE); NITRITE,URINE NEGATIVE (NEGATIVE); PROTEIN,URINE NEGATIVE (NEGATIVE); URINE SPECIFIC GRAVITY 1.017
[2020-05-19 12:01] LABS: ALBUMIN 4.3 g/dL (3.5-5.0); ALKALINE PHOSPHATASE 73 U/L (38-126); ANION GAP 10 (5-19); ASPARTATE AMINO TRANSFERASE 54 U/L (14-36); BILIRUBIN,TOTAL 0.4 mg/dL (0.2-1.3); BLOOD UREA NITROGEN 15 mg/dL (7-20); CALCIUM 8.9 mg/dL (8.4-10.2); CARBON DIOXIDE 21 mmol/L (22-30); CHLORIDE 111 mmol/L (98-107); POTASSIUM 3.5 mmol/L (3.6-5.0); TOTAL PROTEIN 7.3 g/dL (6.3-8.2)
[2020-05-19 12:05] LABS: URINE AMPHETAMINES SCREEN NEGATIVE; URINE BARBITURATES SCREEN NEGATIVE; URINE BENZODIAZEPINES SCREEN NEGATIVE; URINE COCAINE SCREEN NEGATIVE; URINE MARIJUANA (THC) SCREEN UNCONFIRMED POSITIVE; URINE METHADONE SCREEN NEGATIVE; URINE PHENCYCLIDINE SCREEN NEGATIVE
[2020-05-19 12:06] LABS: GLUCOSE 57 mg/dL (75-110)
[2020-05-19 12:16] VITALS: BP 152/78
--- NOTE | 2020-05-19 12:59 | ER Document Report ---
ED Dizziness/Weakness - General Chief Complaint: Dizziness Stated Complaint: DIZZINESS,CONFUSION Time Seen by Provider: 05/19/20 10:52 Primary Care Provider: JALIL GERMAIN MD [Primary Care Provider] - Follow up as needed Mode of Arrival: Ambulatory Information source: Patient Notes: This 59-year-old woman presents to the emergency department with a complaint of dizziness and syncopal episodes. Apparently she has had a history of hypertension and is on blood pressure medications. She has had her blood pressure medications cut in half. She does describe a spinning sensation when she gets up from the bed and her symptoms are worse going from a lying to a vish ding position. According to the patient and her family member she has had episodes of passing out for brief intervals. She denies chest pain, shortness of breath, palpitations or seizure activity. Patient states that she has been here since 9 AM and "it has been 5 hours". TRAVEL OUTSIDE OF THE [place] IN LAST 30 DAYS: No - Related Data Allergies/Adverse Reactions: honey [Honey] Allergy (Intermediate, Verified 05/19/20 10:56) Hives, tongue swelling Honey Bee Venom Protein [From Honey Bee Treatment] Allergy (Intermediate, Verif ied 05/19/20 10:56) Hives, tongue swelling Penicillins Allergy (Intermediate, Verified 05/19/20 10:56) hives, tongue swelling chocolate Allergy (Intermediate, Uncoded 05/19/20 10:56) Hives, tongue swelling POWDER GLOVES Allergy (Intermediate, Uncoded 05/19/20 10:56) RASH tomatoes Allergy (Intermediate, Uncoded 05/19/20 10:56) Hives, tongue swelling Past Medical History - General Information source: Patient - Social History Smoking Status: Current Every Day Smoker Chew tobacco use (# tins/day): No Frequency of alcohol use: Occasional Drug Abuse: None Family History: DM Patient has homicidal ideation: No - Past Medical History Cardiac Medical History: Reports: Hx Hypertension Denies: Hx Coronary Artery Disease, Hx Heart Attack Pulmonary Medical History: Reports: Hx Asthma, Hx Bronchitis, Hx COPD Denies: Hx Pneumonia Neurological Medical History: Denies: Hx Cerebrovascular Accident, Hx Seizures Renal/ Medical History: Denies: Hx Peritoneal Dialysis Malignancy Medical History: Reports: Hx Lung Cancer Musculoskeletal Medical History: Denies Hx Arthritis, Reports Hx Gout Skin Medical History: Reports Hx Cellulitis, Reports Hx MRSA Traumatic Medical History: Reports: Hx Fractures Infectious Medical History: Reports: Hx MRSA Past Surgical History: Reports: Hx Hysterectomy - Immunizations Immunizations up to date: Yes Hx Diphtheria, Pertussis, Tetanus Vaccination: Yes Hx Pneumococcal Vaccination: 07/11/17 Review of Systems - Review of Systems Notes: Constitutional: Negative for fever. HENT: Negative for sore throat. Eyes: Negative for visual changes. Cardiovascular: Negative for chest pain. Respiratory: Negative for shortness of breath. Gastrointestinal: Negative for abdominal pain, vomiting or diarrhea. Genitourinary: Negative for dysuria. Musculoskeletal: Negative for back pain. Skin: Negative for rash. Neurological: + Dizziness, + fainting episodes 10 point ROS negative except as marked above and in HPI. Physical Exam - Vital signs Vitals: Temp Pulse Resp BP Pulse Ox 98.3 F 96 16 156/75 H 93 05/19/20 10:47 05/19/20 10:47 05/19/20 10:47 05/19/20 10:47 05/19/20 10:47 - Notes Notes: GENERAL: No acute distress, non-toxic appearance. HEAD: Normal with no signs of head trauma. EYES: PERRLA, EOMI, conjunctiva normal, no discharge. + Nystagmus, lateral EARS: Hearing grossly intact. NOSE: Normal. THROAT: Oropharynx is normal. NECK: Normal range of motion, no tenderness, supple, no lymphadenopathy, No adenopathy, no JVD. CHEST: Clear breath sounds bilaterally. No wheezes, rales, or rhonchi. CARDIAC: Regular rate and rhythm. S1 and S2, without murmurs, gallops, or rubs. VASCULAR: No Edema. Peripheral pulses normal and equal in all extremities. ABDOMEN: Normal and soft with no tenderness, no masses or pulsatile masses. GASTROINTESTINAL: Bowel sounds normal GENITOURINARY: Normal, No tenderness LYMPATHTIC: No lymphadenopathy noted. MUSCULOSKELETAL: Good range of motion of all major joints. Extremities without clubbing, cyanosis or edema. NEUROLOGICAL: Alert and oriented x 3. No focal sensory or strength deficits. Speech normal. Follows commands appropriately. PSYCHIATRIC: Normal Affect, judgement and mood. SKIN: Normal appearance with no rashes or lesions. Course - Re-evaluation Re-evalutation: 05/19/20 14:45 I reviewed the patient's labs, CT scan chest x-ray EKG and vital signs are unrevealing of a true reason why she would have dizziness/lightheadedness and fainting/syncope episodes. Presently the patient is alert and talkative and states that she is ready to go home. She has been in the emergency department for 5 hours, presently is not symptomatic and will follow-up with her regular doctor. I am in agreement with this plan given the lack of acuity at this time and the patient's stable condition. I have cautioned her to return to the emergency department if needed. She is also given a trial of meclizine given she does describe spinning room sensation and imbalance. - Vital Signs Vital signs: Temp Pulse Resp BP Pulse Ox 98.3 F 87 18 152/78 H 98 05/19/20 10:47 05/19/20 12:14 05/19/20 12:14 05/19/20 12:14 05/19/20 12:14 - Laboratory Result Diagrams: 05/19/20 11:00 05/19/20 11:00 Laboratory results interpreted by me: 05/19/20 05/19/20 05/19/20 11:00 11:00 11:00 RDW 16.5 H Lymph % (Auto) 48.4 H Potassium 3.5 L Chloride 111 H Carbon Dioxide 21 L Glucose 57 L AST 54 H ALT 39 H Urine Ketones TRACE H Urine Urobilinogen 2.0 H Discharge - Discharge Clinical Impression: Dizziness Syncope Qualifiers: Syncope type: unspecified Qualified Code(s): R55 - Syncope and collapse Condition: Good Disposition: HOME, SELF-CARE Instructions: Dizziness ([facility]), Meclizine ([facility]) Additional Instructions: You were seen in the emergency department today with episodes of dizziness/lightheadedness and passing out episodes. Apparently these have been ongoing for the past few weeks. The CT scan, EKG and lab work in the emergency department are negative. You have been given a prescription for meclizine which is used for dizziness. If the medication is helping, please follow-up with your doctor for further treatment if needed. If your symptoms are worsening or if you have other concerns you may return to the emergency department for further evaluation and treatment HOME CARE INSTRUCTIONS & INFORMATION: Thank you for choosing us for your medical needs. We hope you're satisfied with the care you received. After you leave, you must properly care for your problem and, at the same time, observe its progress. Any condition can change. Some illnesses can change rapidly over hours or days. If your condition worsens, return to the Emergency Department or see your physician promptly. ABOUT YOUR X-RAYS AND EKG'S: If you had an EKG or X-rays taken, they have been read by the Emergency Physician. The X-rays and EKG's will also be read by a Radiologist or Flight Test Supervisor within 24 hours. If discrepancies are noted, you will be notified by telephone. Please be certain the ED has a correct telephone number & address where you can be reached. Also, realize that some fractures or abnormalities do not show up on initial X-rays. If your symptoms continue, see your physician. ABOUT YOUR LABORATORY TEST: If you had laboratory tests, the results have been reviewed by the Emergency Physician. Some test results (for example cultures) may not be available for several days. You will be contacted if any test result shows you need additional treatment. Please be certain the ED has a correct telephone number and address where you can be reached. ABOUT YOUR MEDICATIONS: You will receive instructions on how to take your medicine on the prescription label you receive. Additional information may be provided by the Pharmacy. If you have questions afterwards, call the ED for clarification or further instructions. Some prescribed medications may cause drowsiness. Do not perform tasks such as driving a car or operating machinery without consulting your Pharmacist. If you feel you need a refill of pain medication, your condition will need re-evaluation. Please do not call for a re fill of any medication. ABOUT YOUR SIGNATURE: Signature of this document acknowledges to followin. Understanding that you received emergency treatment and that you may be released before al medical problems are known or treated. Please be certain the ED has a correct phone number & address where you can be reached. 2. Acknowledgement that you will arrange for follow-up care as recommended. 3. Authorization for the Emergency Physician to provide information to your follow-up Physician in order to maximize your care. AT ANY TIME, IF YOUR SYMPTOMS CHANGE SIGNIFICANTLY OR WORSEN OR YOU DEVELOP NEW SYMPTOMS, RETURN TO THE EMERGENCY DEPARTMENT IMMEDIATELY FOR RE-EVALUATION. OUR GOAL IS TO PROVIDE EXCELLENT MEDICAL CARE! WE HOPE THAT WE HAVE MET YOUR EXPECTATIONS DURING YOUR EMERGENCY DEPARTMENT VISIT AND THAT YOU FEEL YOU HAVE RECEIVED EXCELLENT CARE! Prescriptions: Meclizine HCl [Antivert 25 mg Tablet] 25 mg PO TID PRN #21 tablet PRN Reason: Referrals: JALIL GERMAIN MD [Primary Care Provider] - Follow up as needed
--- NOTE | 2020-05-19 18:22 | EKG REPORT ---
SEVERITY:- ABNORMAL ECG - SINUS RHYTHM VENTRICULAR BIGEMINY LEFT ATRIAL ABNORMALITY NONSPECIFIC INTRAVENTRICULAR CONDUCTION DELAY : Confirmed by: Antonio Flower MD 19-May-2020 18:21:44
== END 2020-05-19 13:05 | disposition home or self-care (01) ==
LOC: ER 10:06
DX: R42 Dizziness and giddiness (principal); R55 Syncope and collapse; R41.0 Disorientation, unspecified; I10 Essential (primary) hypertension; F17.200 Nicotine dependence, unspecified, uncomplicated; Z88.0 Allergy status to penicillin; Z86.14 Personal history of Methicillin resistant Staphylococcus aureus infection; Z90.710 Acquired absence of both cervix and uterus
CPT/HCPCS: 36415; 70450; 71046; 80053; 80307; 81001; 84484; 85025; 93005; 93010; 99284

== ENCOUNTER → 2020-05-29 | Outpatient (CLI) | payer MEDICARE, MEDICAID ==
--- NOTE | 2020-05-29 12:29 | RADIOLOGY REPORT (SQ) ---
EXAM DESCRIPTION: VENOUS UNILATERAL LOWER IMAGES COMPLETED DATE/TIME: 05/29/2020 11:15 am REASON FOR STUDY: RLE EDEMA M79.89 OTHER SPECIFIED SOFT TISSUE DISORDERS COMPARISON: None. TECHNIQUE: Dynamic and static littlejohn scale and color images acquired of the right leg venous system. S elected spectral images acquired with additional compression and augmentation maneuvers. The contrala teral common femoral vein and saphenofemoral junction were also imaged. Images stored on PACS. LIMITATIONS: None. FINDINGS: COMMON FEMORAL: Normal phasicity, compression and augmentation. No visualized echogenic ma terial on littlejohn scale. No defects on color images. FEMORAL: Normal compression and augmentation. No visualized echogenic material on littlejohn scale. No defe cts on color images. POPLITEAL: Normal compression, augmentation. No visualized echogenic material on littlejohn scale. No defec ts on color images. CALF VESSELS: Normal compression, augmentation. No visualized echogenic material on littlejohn scale. No de fects on color images. GSV and SSV: Normal compression, augmentation. No visualized echogenic material on littlejohn scale. No def ects on color images. ANY DEEP VENOUS INSUFFICIENCY: Not evaluated. ANY EVIDENCE OF POPLITEAL CYST: No. OTHER: No other significant finding. CONTRALATERAL COMMON FEMORAL VEIN AND SAPHENOFEMORAL JUNCTION: Normal phasicity, compression and augmentation. No visualized echogenic material on littlejohn scale. No de fects on color images. IMPRESSION: NO EVIDENCE OF DVT OR SVT IN THE RIGHT LEG. TECHNICAL DOCUMENTATION: JOB ID: [id number] 2010 [employer]- All Rights Reserved Reading location - IP/workstation name: [email or web address]
== END ==
LOC: SP 09:41
PROVIDERS: ATTEND Physician Assistant
DX: M79.89 Other specified soft tissue disorders (principal)
CPT/HCPCS: 93971

== ENCOUNTER 2020-09-08 12:25 | Emergency (ER) | payer MEDICARE, MEDICAID ==
[2020-09-08] MEDS ORDERED: LIDOCAINE 1% INJ-PF (10 MG/ML) 30 ML SDV INJ ONE (13:02)
--- NOTE | 2020-09-08 13:04 | ER Document Report ---
ED Medical Screen (RME) - General Chief Complaint: Laceration Stated Complaint: FALL/RIGHT EYE LACERATION Time Seen by Provider: 09/08/20 12:55 Primary Care Provider: CANDICE STEPHENS MD [Primary Care Provider] - Follow up as needed TRAVEL OUTSIDE OF THE [place] IN LAST 30 DAYS: No - HPI Notes: 09/08/20 13:03 5-year-old female to the emergency department with complaints of right eyebrow and cheek pain and laceration after she sustained a mechanical fall this morning. She states she had gone outside to smoke a cigarette she came back and she tripped over her stool that was by her door. She states she hit her head on the floor. She does think she had loss of consciousness. She denies any nausea or vomiting, dizziness, blurry vision, neck pain. Denies any other injuries. She states that she is up-to-date on her tetanus shot. On brief medical screening exam patient has swollen right maxilla and supraorbital ridge with 4 to 5 cm laceration with gaping. I performed a brief medical screening exam on the patient determined that the patient needs further evaluation and management by main side provider. I have placed initial orders to help expedite care. - Related Data Allergies/Adverse Reactions: honey [Honey] Allergy (Intermediate, Verified 09/08/20 12:55) Hives, tongue swelling Honey Bee Venom Protein [From Honey Bee Treatment] Allergy (Intermediate, Verified 09/08/20 12:55) Hives, tongue swelling Penicillins Allergy (Intermediate, Verified 09/08/20 12:55) hives, tongue swelling chocolate Allergy (Intermediate, Uncoded 09/08/20 12:55) Hives, tongue swelling POWDER GLOVES Allergy (Intermediate, Uncoded 09/08/20 12:55) RASH tomatoes Allergy (Intermediate, Uncoded 09/08/20 12:55) Hives, tongue swelling Past Medical History - Social History Chew tobacco use (# tins/day): No Frequency of alcohol use: daily Drug Abuse: None - Past Medical History Cardiac Medical History: Reports: Hx Hypertension Denies: Hx Coronary Artery Disease, Hx Heart Attack Pulmonary Medical History: Reports: Hx Asthma, Hx Bronchitis, Hx COPD Denies: Hx Pneumonia Neurological Medical History: Denies: Hx Cerebrovascular Accident, Hx Seizures Renal/ Medical History: Denies: Hx Peritoneal Dialysis Malignancy Medical History: Reports: Hx Lung Cancer Musculoskeltal Medical History: Denies Hx Arthritis, Reports Hx Gout Skin Medical History: Reports Hx Cellulitis, Reports Hx MRSA Traumatic Medical History: Reports: Hx Fractures Infectious Medical History: Reports: Hx MRSA Past Surgical History: Reports: Hx Hysterectomy - Immunizations Immunizations up to date: Yes Hx Diphtheria, Pertussis, Tetanus Vaccination: Yes Doctor's Discharge - Discharge Referrals: CANDICE STEPHENS MD [Primary Care Provider] - Follow up as needed
[2020-09-08] MEDS ORDERED: LIDOCAINE 1%/EPINEPHRINE INJ 20 ML VIAL INJ ONE (14:28)
--- NOTE | 2020-09-08 14:36 | ER Document Report ---
ED Wound - General Chief Complaint: Laceration Stated Complaint: FALL/RIGHT EYE LACERATION Time Seen by Provider: 09/08/20 12:55 Primary Care Provider: CANDICE STEPHENS MD [ACTIVE STAFF] - Follow up as needed Notes: CHIEF COMPLAINT: Fall with eyebrow laceration HPI: 59-year-old female presenting for evaluation of a fall with upper eyelid laceration. Patient states that she has a history of syncopal type actions over the last 3 months that are being worked up by her PCP. States that she is being switched on her blood pressure medications because they thought she was too hypotensive on her medications. Patient had recently moved back into her apartment where she states there are mold issues, she has stepped outside to smoke a cigarette and stepped back inside and "passed out". States that she fell forward and struck her head on the floor. Patient states she is up-to-date on her tetanus vaccination. She denies neck pain or extremity injuries. Denies a sensation of her heart beating quickly or irregularly prior to the fall. ROS: See HPI - all other systems were reviewed and are otherwise negative Constitutional: no fever Eyes: no drainage, no blurred vision ENT: no runny nose, no sore throat Cardiovascular: no chest pain Resp: no SOB, no cough GI: no vomiting, no diarrhea, no abdominal pain : no dysuria Integumentary: no rash, positive bruising and laceration Allergy: no hives Musculoskeletal: no extremity pain or swelling Neurological: no numbness/tingling, no weakness, positive headache MEDICATIONS: I agree with the patient medications as charted by the RN. ALLERGIES: I agree with the allergies as charted by the RN. PAST MEDICAL HISTORY/PAST SURGICAL HISTORY: Reviewed and agree as charted by RN. SOCIAL HISTORY: Reviewed and agree as charted by RN. FAMILY HISTORY: No significant familial comorbid conditions directly related to patient complaint EXAM: Reviewed vital signs as charted by RN. CONSTITUTIONAL: Alert and oriented and responds appropriately to questions. Well-appearing; well-nourished HEAD: Normocephalic; 3.5 cm half-bishop shaped laceration just inferior to the lateral aspect of the right eyebrow on the upper eyelid relatively superficial in nature. EYES: PERRL; Conjunctivae clear, sclerae non-icteric. There is some soft tissue swelling and bruising to the lateral inferior aspect of the right eye periorbital region ENT: normal nose; no rhinorrhea; moist mucous membranes; pharynx without lesions noted, no uvula edema or deviation, no tonsillar hypertrophy, phonation normal NECK: Supple without meningismus; non-tender; no cervical lymphadenopathy, no masses CARD: RRR; no murmurs, no clicks, no rubs, no gallops; symmetric distal pulses RESP: Normal chest excursion without splinting or tachypnea; breath sounds decreased bilaterally with congested cough noted, pulse oximetry 95% on room air not hypoxic ABD/GI: Normal bowel sounds; non-distended; soft, non-tender, no rebound, no guarding; no palpable organomegaly or masses. BACK: The back appears normal and is non-tender to palpation, there is no CVA tenderness EXT: Normal ROM in all joints; non-tender to palpation; no cyanosis, no effusions, no edema SKIN: Normal color for age and race; warm; dry; good turgor NEURO: Moves all extremities equally; Motor and sensory function intact PSYCH: The patient's mood and manner are appropriate. Grooming and personal hygiene are appropriate. MDM: 59-year-old female with a fall at home with a laceration to the upper eyelid just inferior to the right eyebrow. This area will require suture closure. It is relatively superficial. Patient states she has been worked up extensively by her PCP for syncopal episodes believe that it was her blood pressure that caused the problem. She had no chest pain or shortness of breath prior to the fall. Patient indicates that she does not want further work-up for the episode at home because this is what happens to her and she is being worked up by her primary care provider. She states she is up-to-date on her tetanus vaccination. CT imaging of the head and face placed in triage. Patient has a congested cough which she states she has had for a week will obtain a chest x- ray to evaluate for infiltrate. Patient does not want lab work or EKG done at this time. Patient is aware we cannot rule out a cardiac origin to her symptoms. TRAVEL OUTSIDE OF THE [place] IN LAST 30 DAYS: No - Related Data Allergies/Adverse Reactions: honey [Honey] Allergy (Intermediate, Verified 09/08/20 12:55) Hives, tongue swelling Honey Bee Venom Protein [From Honey Bee Treatment] Allergy (Intermediate, Verified 09/08/20 12:55) Hives, tongue swelling Penicillins Allergy (Intermediate, Verified 09/08/20 12:55) hives, tongue swelling chocolate Allergy (Intermediate, Uncoded 09/08/20 12:55) Hives, tongue swelling POWDER GLOVES Allergy (Intermediate, Uncoded 09/08/20 12:55) RASH tomatoes Allergy (Intermediate, Uncoded 09/08/20 12:55) Hives, tongue swelling Past Medical History - Social History Smoking Status: Current Every Day Smoker Chew tobacco use (# tins/day): No Frequency of alcohol use: daily Drug Abuse: None Family History: DM Patient has homicidal ideation: No - Past Medical History Cardiac Medical History: Reports: Hx Hypertension Denies: Hx Coronary Artery Disease, Hx Heart Attack Pulmonary Medical History: Reports: Hx Asthma, Hx Bronchitis, Hx COPD Denies: Hx Pneumonia Neurological Medical History: Denies: Hx Cerebrovascular Accident, Hx Seizures Renal/ Medical History: Denies: Hx Peritoneal Dialysis Malignancy Medical History: Reports: Hx Lung Cancer Musculoskeletal Medical History: Denies Hx Arthritis, Reports Hx Gout Skin Medical History: Reports Hx Cellulitis, Reports Hx MRSA Traumatic Medical History: Reports: Hx Fractures Infectious Medical History: Reports: Hx MRSA Past Surgical History: Reports: Hx Hysterectomy - Immunizations Immunizations up to date: Yes Hx Diphtheria, Pertussis, Tetanus Vaccination: Yes Hx Pneumococcal Vaccination: 07/11/17 Physical Exam - Vital signs Vitals: Temp Pulse Resp BP Pulse Ox 97.9 F 85 18 146/68 H 96 09/08/20 12:30 09/08/20 12:30 09/08/20 12:30 09/08/20 12:30 09/08/20 12:30 Course - Re-evaluation Re-evalutation: 09/08/20 15:48 On my review of the patient's chest x-ray I am suspicious for right lower lobe or right middle lobe round infiltrate. This was not present on the patient's x- ray in May 2020. She has had a congested sounding cough for a week. I suspect she likely has pneumonia. Will treat with antibiotics, albuterol inhaler. Her CT of the face and head was read by the radiologist as negative for acute findings. Ice to the face to help with swelling. I have placed dissolving sutures in the upper eyelid region. She may follow-up with primary care provider for reevaluation 09/08/20 15:52 Patient again indicated that she was being followed up for the syncopal type episodes by her PCP and does not want further work-up at this time. She indicates that she does not know whether she tripped going back into the house or not - Vital Signs Vital signs: Temp Pulse Resp BP Pulse Ox 98.0 F 83 18 147/75 H 100 09/08/20 15:42 09/08/20 15:42 09/08/20 15:42 09/08/20 15:42 09/08/20 15:42 Procedures - Laceration/Wound Repair Right Face Time completed: 15:49 Wound length (cm): 3.5 - Half-bishop shaped upper eyelid Wound's Depth, Shape: Superficial, Linear, Contused tissue Laceration pre-procedure: Sterile PPE donned, Sterile drapes applied, Other - Saline Anesthetic type: 1% Lidocaine w/epi Volume Anesthetic (mLs): 2 Wound explored: Clean, No foreign body removed Irrigated w/ Saline (mLs): 500 Wound Repaired With: Sutures Suture Size/Type: 5:0, Other - Gut Number of Sutures: 8 Layer Closure?: No Post-procedure wound care: Sterile dressing applied Post-procedure NV exam normal: Yes Complications: No Discharge - Discharge Clinical Impression: Fall Qualifiers: Encounter type: initial encounter Qualified Code(s): W19.XXXA - Unspecified fall, initial encounter Laceration of eyebrow, right, complicated Qualifiers: Encounter type: initial encounter Qualified Code(s): S01.111A - Laceration without foreign body of right eyelid and periocular area, initial encounter Pneumonia Qualifiers: Pneumonia type: due to unspecified organism Laterality: right Lung location: lower lobe of lung Qualified Code(s): J18.9 - Pneumonia, unspecified organism Condition: Stable Disposition: HOME, SELF-CARE Additional Instructions: The sutures will dissolve over 7 to 10 days. You may clean the area gently with soap and water apply a small amount of antibiotic ointment until healed. Cool compresses to the right face to help with swelling and bruising. Follow-up with your primary care provider for reevaluation. There was no fracture identified on the facial CT today. I am suspicious that you have a pneumonia in your right lung on your chest x-ray please take the Zithromax to treat this. Use the albuterol inhaler 2 puffs every 4 hours as needed for cough or shortness of breath. Follow also up with your primary care provider for reevaluation Prescriptions: Albuterol Sulfate [Proair HFA Inhalation Aerosol 8.5 gm MDI] 2 puff IH Q4H PRN #1 mdi PRN Reason: Azithromycin [Zithromax 250 mg Tablet] 250 mg PO ASDIR PRN #6 tablet PRN Reason: Referrals: CANDICE STEPHENS MD [ACTIVE STAFF] - Follow up as needed
--- NOTE | 2020-09-08 15:07 | RADIOLOGY REPORT (SQ) ---
EXAM DESCRIPTION: CT HEAD WITHOUT IMAGES COMPLETED DATE/TIME: 09/08/2020 2:59 pm REASON FOR STUDY: fall, eval facial fracture, syncope COMPARISON: 05/19/2020 TECHNIQUE: Axial images acquired through the brain without intravenous contrast. Images reviewed wi th bone, brain and subdural windows. Additional sagittal and coronal reconstructions were generated. Images stored on PACS. All CT scanners at this facility use dose modulation, iterative reconstruction, and/or weight based d osing when appropriate to reduce radiation dose to as low as reasonably achievable (ALARA). [facility]: Dose Right [facility]: CareDose [facility]: Dose Right [facility]: Teradose 4D [facility]: Workboard RADIATION DOSE: CT Rad equipment meets quality standard of care and radiation dose reduction techniq ues were employed. CTDIvol: 53.2 mGy. DLP: 1017 mGy-cm. mGy. LIMITATIONS: None. FINDINGS: VENTRICLES: Normal size and contour. CEREBRUM: No masses. No hemorrhage. No midline shift. No evidence for acute infarction. Normal gra y/white matter differentiation. No areas of low density in the white matter. CEREBELLUM: No masses. No hemorrhage. No alteration of density. No evidence for acute infarction. EXTRAAXIAL SPACES: No fluid collections. No masses. ORBITS AND GLOBE: No intra- or extraconal masses. Normal contour of globe without masses. CALVARIUM: No fracture. PARANASAL SINUSES: No fluid or mucosal thickening. SOFT TISSUES: Right periorbital soft tissue edema. OTHER: No other significant finding. IMPRESSION: No acute intracranial event. Right periorbital soft tissue edema. EVIDENCE OF ACUTE STROKE: NO. COMMENT: Quality ID # [id number]: Final reports with documentation of one or more dose reduction techniques (e.g., Automated exposure control, adjustment of the mA and/or kV according to patient size, use of iterative reconstruction technique) TECHNICAL DOCUMENTATION: JOB ID: [id number] 2010 [employer]- All Rights Reserved Reading location - IP/workstation name: [email or web address]
--- NOTE | 2020-09-08 15:09 | RADIOLOGY REPORT (SQ) ---
EXAM DESCRIPTION: CT FACIAL AREA WITHOUT IMAGES COMPLETED DATE/TIME: 09/08/2020 2:59 pm REASON FOR STUDY: fall, eval facial fracture COMPARISON: None. TECHNIQUE: Noncontrasted images through the facial bones and orbits windowed for bone and soft tissu e. Additional coronal and sagittal reconstructed images reviewed. All images stored on PACS. All CT scanners at this facility use dose modulation, iterative reconstruction, and/or weight based d osing when appropriate to reduce radiation dose to as low as reasonably achievable (ALARA). [facility]: Dose Right [facility]: CareDose [facility]: Dose Right [facility]: Teradose 4D [facility]: Smart [employer] RADIATION DOSE: CT Rad equipment meets quality standard of care and radiation dose reduction techniq ues were employed. CTDIvol: 30.4 mGy. DLP: 562 mGy-cm. mGy. LIMITATIONS: None. FINDINGS: FACIAL BONES: No fracture or bone lesion. ORBITS: Right periorbital soft tissue edema. No fracture. PARANASAL SINUSES: Clear. No significant mucosal thickening, mass or fluid. No nasal polyps. Maxill marie sinus outlets are patent. SOFT TISSUES: No mass or edema. INFERIOR BRAIN: Limited view. No acute findings. OTHER: No other significant finding. IMPRESSION: Right periorbital edema. No fracture. TECHNICAL DOCUMENTATION: JOB ID: [id number] Quality ID # [id number]: Final reports with documentation of one or more dose reduction techniques (e.g., Au tomated exposure control, adjustment of the mA and/or kV according to patient size, use of iterative reconstruction technique) 2010 [employer]- All Rights Reserved Reading location - IP/workstation name: [email or web address]
--- NOTE | 2020-09-08 15:28 | RADIOLOGY REPORT (SQ) ---
EXAM DESCRIPTION: CHEST SINGLE VIEW IMAGES COMPLETED DATE/TIME: 09/08/2020 3:19 pm REASON FOR STUDY: fall cough COMPARISON: 05/19/2020 EXAM PARAMETERS: NUMBER OF VIEWS: One view. TECHNIQUE: Single frontal radiographic view of the chest acquired. RADIATION DOSE: NA LIMITATIONS: None. FINDINGS: LUNGS AND PLEURA: Scarring in both lung bases. No consolidation or effusions. No pneumot horax. MEDIASTINUM AND HILAR STRUCTURES: No masses. Contour normal. HEART AND VASCULAR STRUCTURES: Heart is slightly enlarged with stable in appearance. No failure. BONES: No acute findings. HARDWARE: None in the chest. OTHER: No other significant finding. IMPRESSION: NO ACUTE RADIOGRAPHIC FINDING IN THE CHEST. TECHNICAL DOCUMENTATION: JOB ID: [id number] 2010 [employer]- All Rights Reserved Reading location - IP/workstation name: [email or web address]
[2020-09-08 15:43] VITALS: BP 147/75
[2020-09-08] MEDS ORDERED: AZITHROMYCIN 250 MG TABLET PO ONE (15:50)
== END 2020-09-08 16:00 | disposition home or self-care (01) ==
LOC: ER 12:25
DX: S01.111A Laceration without foreign body of right eyelid and periocular area, initial encounter (principal); W19.XXXA Unspecified fall, initial encounter; Y93.89 Activity, other specified; Y92.039 Unspecified place in apartment as the place of occurrence of the external cause; R55 Syncope and collapse; J44.0 Chronic obstructive pulmonary disease with (acute) lower respiratory infection; J18.9 Pneumonia, unspecified organism; I10 Essential (primary) hypertension; F17.210 Nicotine dependence, cigarettes, uncomplicated; Z77.120 Contact with and (suspected) exposure to mold (toxic); Z91.018 Allergy to other foods; Z91.030 Bee allergy status; Z88.0 Allergy status to penicillin; Z91.048 Other nonmedicinal substance allergy status
CPT/HCPCS: 99284; 71045; 70450; 70486; 12013; A9270; J3490

== ENCOUNTER → 2020-09-12 | Outpatient (CLI) | payer MEDICARE, MEDICAID ==
--- NOTE | 2020-09-12 14:43 | RADIOLOGY REPORT (SQ) ---
EXAM DESCRIPTION: CT CHEST WITHOUT IMAGES COMPLETED DATE/TIME: 09/12/2020 10:59 am REASON FOR STUDY: MALIGNANT NEOPLASM OF LOWER LOBE, LEFT BRONCHUS OR LUNG C34.32 MALIGNANT NEOPLASM OF LOWER LOBE, LEFT BRONCHUS OR CARMENCITA COMPARISON: 04/18/2020 TECHNIQUE: CT scan performed of the chest without intravenous contrast. Images reviewed with lung, soft tissue and bone windows. Reconstructed coronal and sagittal MPR images reviewed. All images st ored on PACS. All CT scanners at this facility use dose modulation, iterative reconstruction, and/or weight based d osing when appropriate to reduce radiation dose to as low as reasonably achievable (ALARA). [facility]: Dose Right [facility]: CareDose [facility]: Dose Right [facility]: Teradose 4D [facility]: [employer] RADIATION DOSE: CT Rad equipment meets quality standard of care and radiation dose reduction techniq ues were employed. CTDIvol: 3.4 mGy. DLP: 126 mGy-cm. mGy. LIMITATIONS: No technical limitations. FINDINGS: LUNGS AND PLEURA: Persistent area of parenchymal consolidation within the left lower lobe. Previously referenced area posteriorly is mildly increased measuring 2.5 x 2.5 cm, previously 2.2 x 2.1 cm. There is additional area of consolidation adjacent and anterior to these consolidation rodrigue uring 2.8 x 2.0 cm (series 4, image 80). Additional area of pleuroparenchymal consolidation within t he right lower lobe, similar to prior. No additional new discrete pulmonary masses. No definitive a irspace disease. Scattered parenchymal cysts and upper lobe centrilobular emphysematous change. No pleural effusion or pneumothorax. HILAR AND MEDIASTINAL STRUCTURES: No identified masses or abnormal nodes. No obvious aneurysm. HEART AND VASCULAR STRUCTURES: Normal heart size. Scattered coronary atherosclerosis. Scattered aor tic atherosclerosis. No significant pericardial effusion. UPPER ABDOMEN: No significant findings. Limited exam. THYROID AND OTHER SOFT TISSUES: No masses. No adenopathy. BONES: No acute bony abnormality. No discrete lytic or blastic osseous lesions. HARDWARE: None in the chest. OTHER: No other significant findings. IMPRESSION: 1. Persistent parenchyma consolidation within the left lower lobe with increased adjace nt consolidation as above. Findings possibly treatment related although residual/ recurrent disease is not excluded. PET-CT could be considered for more definitive characterization. 2. No other evidence of acute intrathoracic process. TECHNICAL DOCUMENTATION: JOB ID: [id number] Quality ID # [id number]: Final reports with documentation of one or more dose reduction techniques (e.g., Au tomated exposure control, adjustment of the mA and/or kV according to patient size, use of iterative reconstruction technique) 2010 [employer]- All Rights Reserved Reading location - IP/workstation name: [email or web address]
== END ==
LOC: RAD 10:51
PROVIDERS: ATTEND Internal Medicine
DX: C34.32 Malignant neoplasm of lower lobe, left bronchus or lung (principal)
CPT/HCPCS: 71250

== ENCOUNTER → 2020-09-13 | Outpatient (CLI) | payer MEDICARE, MEDICAID ==
[2020-09-13 15:09] LABS: ABSOLUTE BASOPHILS # (AUTO) 0.1 10^3/uL (0.0-0.2); ABSOLUTE EOSINOPHILS # (AUTO) 0.2 10^3/uL (0.0-0.6); ABSOLUTE LYMPHOCYTES (AUTO) 2.5 10^3/uL (0.5-4.7); ABSOLUTE MONOCYTES (AUTO) 0.5 10^3/uL (0.1-1.4); ABSOLUTE NEUT (AUTO) 3.2 10^3/uL (1.7-8.2); EOSINOPHILS % (AUTO) 2.5 % (0-6); HEMATOCRIT 35.7 % (36.0-47.0); HEMOGLOBIN 12.4 g/dL (12.0-15.5); LYMPHOCYTES % (AUTO) 38.2 % (13-45); MEAN CORPUSCULAR HEMOGLOBIN 31.2 pg (27.0-33.4); MEAN CORPUSCULAR HGB CONC 34.6 g/dL (32.0-36.0); MEAN CORPUSCULAR VOLUME 90 fl (80-97); PLATELET COUNT 275 10^3/uL (150-450); RED BLOOD COUNT 3.96 10^6/uL (3.72-5.28); RED CELL DISTRIBUTION WIDTH 17.5 % (11.5-14.0); SEGMENTED NEUTROPHILS % (AUTO) 50.3 % (42-78); TOTAL CELLS COUNTED % (AUTO) 100 %; WHITE BLOOD COUNT 6.4 10^3/uL (4.0-10.5)
[2020-09-13 15:38] LABS: ALBUMIN 4.2 g/dL (3.5-5.0); ALKALINE PHOSPHATASE 71 U/L (38-126); ANION GAP 11 (5-19); ASPARTATE AMINO TRANSFERASE 37 U/L (14-36); BILIRUBIN,DIRECT 0.1 mg/dL (0.0-0.4); BILIRUBIN,TOTAL 0.4 mg/dL (0.2-1.3); BLOOD UREA NITROGEN 11 mg/dL (7-20); CALCIUM 9.4 mg/dL (8.4-10.2); CARBON DIOXIDE 21 mmol/L (22-30); CHLORIDE 108 mmol/L (98-107); GLUCOSE 111 mg/dL (75-110); POTASSIUM 3.7 mmol/L (3.6-5.0); TOTAL PROTEIN 7.1 g/dL (6.3-8.2)
== END ==
LOC: OD 14:04
PROVIDERS: ATTEND Physician Assistant
DX: R05 Cough (principal)
CPT/HCPCS: 36415; 80053; 85025